=== PATIENT | female | born 1980 | race Caucasian/White ===

== ENCOUNTER 2018-11-05 06:48 | Emergency (ER) | payer SELFPAY ==
[2018-11-05 06:51] VITALS: BP 126/83; PULSE 94; RESP 16; TEMP 36.8; O2SAT 100; BMI 25.0
--- NOTE | 2018-11-05 07:10 | ED.VISSUMM ---
- ER Visit Summary Date of Service: 11/05/18 Chief Complaint: [Rash] History of Present Illness: The patient is a 37 F [presents the emergency department complaint of a rash that she has had for 2 days. Patient states initially the rash, started on her feet and ankles and spread up to her legs and trunk as well as her arms. Patient describes it as very pruritic. Patient states that she started taking an immune vitamin called immune C before the rash started but then she discontinued it. Patient also states that she used a new detergent to wash her laundry with but she also states that she discontinued that and we washed all her clothing and her old detergent. Patient denies any recent illness. She denies any fevers. She denies being on any new medications or antibiotics otherwise. She denies any difficulty swallowing or breathing at this time.] Physical Examination: HEENT-PERRLA, EOMI. Cranial nerves II through XII grossly intact. TMs clear. Mucous membranes moist. No adenopathy. Cardiovascular-regular rate and rhythm without murmur or ectopy Lungs-clear to auscultation, chest wall stable without crepitus or subcu emphysema Abdomen-normoactive bowel sounds, soft, nontender, no rebound or rigidity, no peritoneal signs. Skin exam-patient has a fine erythematous macular rash that involving the extremities as well as the trunk. The rash is pruritic. Patient does have some mild edema both ankles noted. No petechiae noted. No vesicles noted. Extremities-intact ?4, normal range of motion, normal pulses, atraumatic] Test Results: [None indicated] Emergency Department Course and Treatment: [Patient will be started on prednisone and was given 60 mg p.o. in the department.] Treatment Plan: [We will treat with prednisone and Atarax. Patient will be given referral to lacquer maker for follow-up.] Disposition: [Discharged home in stable condition] Impression: [Dermatitis-etiology uncertain] This note was generated with [employer] dictation software. It may contain incorrect words, spelling, and punctuation that were not noted in review of the chart prior to signing ED Disposition - Plan for ED Patient: Chief Complaint: Rash Referrals: Care Physician,No Primary [Primary Care Provider] -
--- NOTE | 2018-11-05 07:13 | ED.DCSUM_ITS ---
- ER Visit Summary Date of Service: 11/05/18 Chief Complaint: [Rash] History of Present Illness: The patient is a 37 F [presents the emergency department complaint of a rash that she has had for 2 days. Patient states initially the rash, started on her feet and ankles and spread up to her legs and trunk as well as her arms. Patient describes it as very pruritic. Patient states that she started taking an immune vitamin called immune C before the rash started but then she discontinued it. Patient also states that she used a new detergent to wash her laundry with but she also states that she discontinued that and we washed all her clothing and her old detergent. Patient denies any recent illness. She denies any fevers. She denies being on any new medications or antibiotics otherwise. She denies any difficulty swallowing or breathing at this time.] Physical Examination: HEENT-PERRLA, EOMI. Cranial nerves II through XII grossly intact. TMs clear. Mucous membranes moist. No adenopathy. Cardiovascular-regular rate and rhythm without murmur or ectopy Lungs-clear to auscultation, chest wall stable without crepitus or subcu emphysema Abdomen-normoactive bowel sounds, soft, nontender, no rebound or rigidity, no peritoneal signs. Skin exam-patient has a fine erythematous macular rash that involving the extremities as well as the trunk. The rash is pruritic. Patient does have some mild edema both ankles noted. No petechiae noted. No vesicles noted. Extremities-intact ?4, normal range of motion, normal pulses, atraumatic] Test Results: [None indicated] Emergency Department Course and Treatment: [Patient will be started on prednisone and was given 60 mg p.o. in the department.] Treatment Plan: [We will treat with prednisone and Atarax. Patient will be given referral to certified juvenile probation officer for follow-up.] Disposition: [Discharged home in stable condition] Impression: [Dermatitis-etiology uncertain] This note was generated with [employer] dictation software. It may contain incorrect words, spelling, and punctuation that were not noted in review of the chart prior to signing ED Disposition - Plan for ED Patient: Chief Complaint: Rash Referrals: Care Physician,No Primary [Primary Care Provider] -
--- NOTE | 2018-11-05 07:13 | ED.DEP ---
ED Disposition - Plan for ED Patient: Chief Complaint: Rash Instructions: ED Dermatitis Non Specific Rash Prescriptions: hydrOXYzine tablet [Atarax tablet] 10 mg PO 4X/DAY PRN PRN #30 tab PRN Reason: Itching predniSONE tablet 20 mg PO BID #14 tab Referrals: Care Physician,No Primary [Primary Care Provider] - Jesse Forrester MD [STAFF PHYSICIAN] - 5-7 Days
[2018-11-05] MEDS: predniSONE 20 MG Tablet 60 MG PO (07:16)
--- OUTSIDE RECORDS SUMMARY | 2018-12-22 02:25 | XMS RPT_ITS ---
:1980 Author Organization OHIP Support Name Relationship Address Phone SAM LOVELY Unavailable [address] + [place] [address] SAM LOVELY Unavailable [address] + [place] [address] SAM LOVELY Unavailable [address] + [place] [address] FRANTZ MELENDEZ JR Unavailable [address] + [place] [address] SAM LOVELY Unavailable [address] + [place] [address] SAM LOVELY Unavailable [address] + [place] [address] SAM, LOVELY Unavailable [address] + [place] [address] FRANTZ MELENDEZ JR Unavailable [address] + [place] [address] NICK VARGASDY Unavailable Unavailable + UE Unavailable Unavailable Unavailable NICK VARGASDY Unavailable Unavailable + UE Unavailable Unavailable Unavailable NICK VARGASDY Unavailable [address] + [place] [address] UE Unavailable Unavailable Unavailable SAM, LOVELY Unavailable [address] + [place] [address] SAM LOVELY Unavailable [address] + [place] [address] SAM LOVELY Unavailable [address] + [place] [address] FRANTZ MELENDEZ JR Unavailable [address] + [place] [address] SAM, LOVELY Unavailable [address] + [place] [address] SAM, LOVELY Unavailable [address] + [place] [address] SAM, LOVELY Unavailable [address] + [place] [address] FRANTZ MELENDEZ JR Unavailable [address] + [place] [address] ASM, LOVELY Unavailable [address] + [place] [address] SAM, LOVELY Unavailable [address] + [place] [address] SAM, LOVELY Unavailable [address] + [place] [address] FRANTZ MELENDEZ JR Unavailable [address] + [place] [address] SAM, LOVELY Unavailable [address] + [place] [address] [address] [facility] [address] [address] Care Team Providers Name Role Phone KATHERINE SEN, DR. MORALES Attending Unavailable PHYSICIAN, NONE Primary Care Unavailable Karen Piedra MD Attending Unavailable PHYSICIAN, NONE Primary Care Unavailable KAYLEN RAMOS MD Attending Unavailable PHYSICIAN, NONE Primary Care Unavailable MELA HOPKINS Attending Unavailable PHYSICIAN, NONE Primary Care Unavailable PHYSICIAN, NONE Primary Care Unavailable GUIDO SEN MD. RUY Dixon Consulting Unavailable GUIDO SEN MD. RUY Dixon Admitting Unavailable GUIDO SEN MD. RUY Dixon Attending Unavailable KEITH HOROWITZ (HYUN) Attending Unavailable Primay Care Physicia, No Primary Care Unavailable Arley Hernández Attending Unavailable Primay Care Physicia, No Primary Care Unavailable Max Skinner Attending Unavailable Primay Care Physicia, No Primary Care Unavailable Naeem Arzola Attending Unavailable Primay Care Physicia, No Primary Care Unavailable Andrew Melendez Attending Unavailable PROBLEMS PROBLEMS DATE TYPE CONDITION / CODE ATTENDING STATUS SOURCE 12/19/2017 Unknown M54.9 - Naeem Arzola Active [facility], Community unspecified / Hospital M54.9(ICD-10) Repository PROCEDURES PROCEDURES No Procedure Records FoundRESULTS RESULTS US RENAL Observed: 12/01/2018 Status: F Source: [facility] 7:14 AM [facility] [place] REPOSITORY ORIGINAL US RENAL CLINICAL STATEMENT: Elevated Creatinine COMPARISON: None FINDINGS:Today's examination demonstrates a RIGHT renal length of 10.8 cm and LEFT renal length of 11.0 cm. There is slight prominence of the collecting system centrally in both kidneys. On the LEFT, fi ndings suggesting an extrarenal pelvis on CT images from 04/11/2015 is noted. This may account for the slight collecting prominence. There is limited visualization of the renal cortices particularly in the inferior pole bilaterally due to body habitus and bowel gas. No obvious intrarenal collecting system filling defects to suggest renal calculus disease is noted. The bladder is moderately distended. IMPRESSION:Minimal central collecting system prominence which may in part be related to the partially collapsed extrarenal pelvis on the LEFT. There is no luis carlos collecting system dilatation or perinephric abnormality. Interpreted By: Tashia Guillermo MD Preliminary Report By: Tashia Guillermo MD Electronically Signed By: Tashia Guillermo MD Dictated Date: 12/01/2018 8:34:01 AM Prelim Date: 12/01/2018 8:34:01 AM Sign Date: 12/01/2018 8:42:38 AM BMP Collected: 12/01/2018 Status: F Source: [facility] 5:20 AM [facility] [place] REPOSITORY TYPE CODE TESTS RESULT OUT OF REFERENCE UNITS RANGE LAB GLU(LOINC) 70-105 mg/dL Glucose High Level 157 LAB NA(LOINC) 136-145 mmol/L Sodium Level 139 LAB K(LOINC) 3.5-5.1 mmol/L Potassium Level 3.8 LAB CL(LOINC) 98-107 mmol/L Chloride 102 LAB CO2(LOINC) 22-29 mmol/L CO2 High 31 LAB EBAL(LOINC mEq/L ) Electrolyte Balance 6.0 LAB BUN(LOINC) 7-18 mg/dL BUN 9 LAB CRE(LOINC) 0.55-1.02 mg/dL Creatinine Lvl (s) 0.72 LAB BC(LOINC) 7-27 ratio BUN/Creatinine 12 Ratio LAB CA(LOINC) 8.4-10.2 mg/dL Calcium Lvl 8.8 Performed By: #### BMP, TSH, GFR #### [address] [address] TSH Collected: 12/01/2018 Status: F Source: [facility] 5:20 AM [facility] [place] REPOSITORY TYPE CODE TESTS RESULT OUT OF RANGE REFERENCE UNITS LAB TSH(LOINC) 0.36-3.74 mcIU/mL TSH 0.41 Performed By: #### BMP, TSH, GFR #### [address] [address] .GFR Collected: 12/01/2018 Status: F Source: [facility] 5:20 AM [facility] [place] REPOSITORY TYPE CODE TESTS RESULT OUT OF REFERENCE UNITS RANGE LAB GFRAA(LOINC ml/min/1.73 ) sqm GFR 110 Vietnamese Result Comment: GFR Population mean for , Non- Americans Ages 20-29 = 116 mL/min/1.73 sq.m. Ages 30-39 = 107 mL/min/1.73 sq.m. Ages 40-49 = 99 mL/min/1.73 sq.m. Ages 50-59 = 93 mL/min/1.73 sq.m. Ages 60-69 = 85 mL/min/1.73 sq.m. Ages 70+ = 75 mL/min/1.73 sq.m. Chronic Kidney Disease: Less than 60 mL/min/1.73 square meters End Stage Renal Disease: Less than 15 mL/min/1.73 square meters LAB GFRNO(LOINC) ml/min/1.73sqm GFR Non- 91 Result Comment: GFR Population mean for , Non- Americans Ages 20-29 = 116 mL/min/1.73 sq.m. Ages 30-39 = 107 mL/min/1.73 sq.m. Ages 40-49 = 99 mL/min/1.73 sq.m. Ages 50-59 = 93 mL/min/1.73 sq.m. Ages 60-69 = 85 mL/min/1.73 sq.m. Ages 70+ = 75 mL/min/1.73 sq.m. Chronic Kidney Disease: Less than 60 mL/min/1.73 square meters End Stage Renal Disease: Less than 15 mL/min/1.73 square meters Performed By: #### BMP, TSH, GFR #### [place] [address] JESS Collected: 11/30/2018 Status: F Source: [facility] 5:22 PM [facility] [place] REPOSITORY TYPE CODE TESTS RESULT OUT OF RANGE REFERENCE UNITS LAB JESS(LOINC) Neg 40 JESS Neg 40 Performed By: #### ESR, JESS #### [place] [address] SPE Collected: 11/30/2018 Status: F Source: [facility] 5:22 PM [facility] [place] REPOSITORY TYPE CODE TESTS RESULT OUT OF REFERENCE UNITS RANGE LAB PROT(LOIN 6.0-8.5 G/dL C) Total Protein 5.3 Low LAB PEALB(FARAZ 3.3-5.0 G/dL NC) Albumin 2.8 Low LAB PEA1(LOIN 0.1-0.4 G/dL C) Alpha 1 0.2 LAB PEA2(LOIN 0.6-1.2 G/dL C) Alpha 2 0.8 LAB PEB(LOINC 0.6-1.3 G/dL ) Beta 0.7 LAB PEGLB(FARAZ 0.7-1.6 G/dL NC) Gamma 0.8 LAB PECOM(FARAZ NC) SPE The total Interpretation protein and/or albumin is/are decreased. This may occur in liver disease, malnutrition, malabsorption syndromes, selective renal loss and following removal of large effusions, hemodialysis or apheresis. Result Comment: Electronically Signed by: REGI JACK MD 12/02/2018 13:59 EST Performed By: #### SPE #### [place] [address] 24UTP Collected: 11/30/2018 Status: F Source: [facility] 5:05 PM [facility] [place] REPOSITORY TYPE CODE TESTS RESULT OUT OF REFERENCE UNITS RANGE LAB VOL24(LOINC mL/24hr ) U24 Total 3000 Volume Result Comment: Specimen collection time 17 Hr. Due to patient discharged before 24Hr. LAB PRUR(LOINC) 0-11 mg/dL Ur Protein <6 LAB PR24(LOINC) <=149 mg/24hr High U24 Protein <180 Performed By: #### 24UTP #### [place] [id number] UA Collected: 11/30/2018 Status: F Source: [facility] 4:14 PM [facility] [place] REPOSITORY TYPE CODE TESTS RESULT OUT OF REFERENCE UNITS RANGE LAB SPCUA(LOIN C) UA Specimen Type Clean Catch LAB CLRUA(LOIN C) UA Color Yellow LAB APPUA(LOIN Clear C) UA Appear Clear LAB SGUA(LOINC ) UA Spec Grav 1.015 LAB GLUA(LOINC Negative mg/dL ) UA Glucose Negative LAB BILUA(LOIN Negative C) UA Bili Negative LAB KETUA(LOIN Negative mg/dL C) UA Ketones Negative LAB BLDUA(LOIN Negative C) UA Blood Negative LAB PHUA(LOINC ) UA pH 6.5 LAB PROUA(LOIN Negative mg/dL C) UA Protein Negative LAB UROUA(LOIN E.U./dL C) UA Urobilinogen 0.2 LAB NITUA(LOIN Negative C) UA Nitrite Negative LAB LEUUA(LOIN Negative C) UA Leuk Est Negative Performed By: #### UA #### [address] [address] CBC Collected: 11/30/2018 Status: F Source: [facility] 4:14 [facility] REPOSITORY TYPE CODE TESTS RESULT OUT OF REFERENCE UNITS RANGE LAB WBC(LOINC) 4.60-10.80 10 3/mcL WBC 7.40 LAB RBCCT(LOINC 4.20-5.40 10 6/mcL ) RBC 5.09 LAB HGB(LOINC) 12.0-16.0 G/dL Hgb 14.7 LAB HCT(LOINC) 37.0-47.0 % Hct 43.6 LAB MCV(LOINC) 80.0-94.0 fL MCV 85.5 LAB MCH(LOINC) 27.0-31.2 pg MCH 28.9 LAB MCHC(LOINC) 33.0-37.0 G/dL MCHC 33.8 LAB RDW(LOINC) 11.5-14.5 % RDW 14.1 LAB PLT(LOINC) 130-400 10 3/mcL Platelet 219 LAB MPV(LOINC) 7.4-10.4 fL Low MPV 7.0 Performed By: #### CBC, KAYLIE, [facility] #### [place] [id number] #### CMP, GFR #### [place] [address] .AUTO DIFF Collected: 11/30/2018 Status: F Source: [facility] 4:14 PM [facility] [place] REPOSITORY TYPE CODE TESTS RESULT OUT OF REFERENCE UNITS RANGE LAB AMAYA(LOINC) 37.0-80.0 % Neutrophil % 60.0 LAB LYM(LOINC) 10.0-50.0 % Lymphocyte % 26.2 LAB MON(LOINC) 1.7-13.0 % Monocyte % 6.6 LAB EO(LOINC) 0.0-7.0 % Eosinophil % 6.1 LAB BAS(LOINC) 0.0-2.5 % Basophil % 1.1 LAB ABLYM(LOIN 0.77-3.85 10 3/mcL C) Lymphocyte, 1.90 Absolute LAB NENA(LOINC 0.15-1.00 10 3/mcL ) Monocyte, 0.50 Absolute LAB AEOS(LOINC 0.00-0.40 10 3/mcL ) Eosinophil, 0.40 Absolute LAB ABAS(LOINC 0.00-0.19 10 3/mcL ) Basophil, 0.10 Absolute Performed By: #### CBC, ADIFF, ANEU #### [place] [address] #### CMP, GFR #### [place] [address] .NEUABS Collected: 11/30/2018 Status: F Source: [facility] 4:14 PM [facility] [place] REPOSITORY TYPE CODE TESTS RESULT OUT OF REFERENCE UNITS RANGE LAB ANEU(LOINC) 2.85-6.16 10 3/mcL Neutrophil, 4.40 Absolute Performed By: #### CBC, ADIFF, ANEU #### [place] [address] #### CMP, GFR #### [place] [address] CMP Collected: 11/30/2018 Status: F Source: [facility] 4:14 [facility] REPOSITORY TYPE CODE TESTS RESULT OUT OF REFERENCE UNITS RANGE LAB GLU(LOINC) 70-105 mg/dL Glucose High Level 119 LAB NA(LOINC) 136-145 mmol/L Sodium Level 137 LAB K(LOINC) 3.5-5.1 mmol/L Potassium Level 3.6 LAB CL(LOINC) 98-107 mmol/L Chloride 101 LAB CO2(LOINC) 22-29 mmol/L CO2 High 30 LAB EBAL(LOINC mEq/L ) Electrolyte Balance 6.0 LAB BUN(LOINC) 7-18 mg/dL BUN 8 LAB CRE(LOINC) 0.55-1.02 mg/dL Creatinine Lvl (s) 0.65 LAB BC(LOINC) 7-27 ratio BUN/Creatinine 12 Ratio LAB CA(LOINC) 8.4-10.2 mg/dL Low Calcium Lvl 8.3 LAB PROT(LOINC 6.4-8.2 G/dL ) Low Total Protein 5.7 LAB ALB(LOINC) 3.5-5.0 G/dL Low Albumin Level 2.7 LAB GLB(LOINC) G/dL Globulin 3.0 LAB AG(LOINC) 1.1-2.5 ratio Low A/G Ratio 0.9 LAB BILT(LOINC 0.2-1.0 mg/dL ) Bili Total 0.4 LAB AP(LOINC) 40-135 U/L Alk Phos 90 LAB AST(LOINC) 10-40 U/L AST/SGOT High 66 LAB ALT(LOINC) 10-35 U/L ALT/SGPT High 150 Performed By: #### CBC, ADIFF, ANEU #### [address] [address] #### CMP, GFR #### [address] [address] .GFR Collected: 11/30/2018 Status: F Source: [facility] 4:14 [facility] TYPE CODE TESTS RESULT OUT OF REFERENCE UNITS RANGE LAB GFRAA(LOINC ml/min/1.73 ) sqm GFR 124 Vietnamese Result Comment: GFR Population mean for , Non- Americans Ages 20-29 = 116 mL/min/1.73 sq.m. Ages 30-39 = 107 mL/min/1.73 sq.m. Ages 40-49 = 99 mL/min/1.73 sq.m. Ages 50-59 = 93 mL/min/1.73 sq.m. Ages 60-69 = 85 mL/min/1.73 sq.m. Ages 70+ = 75 mL/min/1.73 sq.m. Chronic Kidney Disease: Less than 60 mL/min/1.73 square meters End Stage Renal Disease: Less than 15 mL/min/1.73 square meters LAB GFRNO(LOINC) ml/min/1.73sqm GFR Non- 103 Result Comment: GFR Population mean for , Non- Americans Ages 20-29 = 116 mL/min/1.73 sq.m. Ages 30-39 = 107 mL/min/1.73 sq.m. Ages 40-49 = 99 mL/min/1.73 sq.m. Ages 50-59 = 93 mL/min/1.73 sq.m. Ages 60-69 = 85 mL/min/1.73 sq.m. Ages 70+ = 75 mL/min/1.73 sq.m. Chronic Kidney Disease: Less than 60 mL/min/1.73 square meters End Stage Renal Disease: Less than 15 mL/min/1.73 square meters Performed By: #### CBCKAYLIE, ANEU #### [place] [address] [address] #### CMP, GFR #### [place] [address] CRSETH Collected: 11/30/2018 Status: F Source: [facility] 4:14 [facility] REPOSITORY TYPE CODE TESTS RESULT OUT OF REFERENCE UNITS RANGE LAB CRU(LOINC) 28.0-117.0 mg/dL U Creatinine 67.9 Performed By: #### EUGENE NASETH #### [place] [address] NAUR Collected: 11/30/2018 Status: F Source: [facility] 4:14 [facility] REPOSITORY TYPE CODE TESTS RESULT OUT OF REFERENCE UNITS RANGE LAB NAEEM(LOINC) 20-110 mmol/L High U Sodium 121 Performed By: #### EUGENE, NAUR #### [address] [address] ESR Collected: 11/30/2018 Status: F Source: [facility] 4:14 PM [facility] [place] REPOSITORY TYPE CODE TESTS RESULT OUT OF REFERENCE UNITS RANGE LAB ESR(LOINC) 0-20 mm/hr Erythrocyte Sed Rate 5 Performed By: #### ESR, JESS #### [place] [address] EOS Collected: 11/30/2018 Status: F Source: [facility] 4:14 PM [facility] [place] REPOSITORY TYPE CODE TESTS RESULT OUT OF REFERENCE UNITS RANGE LAB EOSRC(LOIN C) Eosinophil Spec Urine Type LAB EOSMR(LOIN C) Eos Smear 0 Result Comment: The units for an eosinophil smear depend upon specimen type: Stool, sputum, nasal specimens: number of cells/hp field Urine, bronchial lavage: number of cells/100 cells (%) Performed By: #### EOS #### [place] [address] UA Collected: 11/22/2018 Status: F Source: [facility] 8:32 PM [facility] [place] REPOSITORY TYPE CODE TESTS RESULT OUT OF RANGE REFERENCE UNITS LAB SPCUA(FARAZ NC) UA Specimen Type Clean Catch LAB CLRUA(FARAZ NC) UA Color Yellow LAB APPUA(FARAZ Clear NC) UA Appear Clear LAB SGUA(LOIN C) UA Spec Unknown Grav 1.010 LAB GLUA(LOIN Negative mg/dL C) UA Glucose Negative LAB BILUA(FARAZ Negative NC) UA Bili Negative LAB KETUA(FARAZ Negative mg/dL NC) UA Ketones Negative LAB BLDUA(FARAZ Negative NC) UA Blood Negative LAB PHUA(LOIN C) UA pH 6.0 LAB PROUA(FARAZ Negative mg/dL NC) UA Protein Negative LAB UROUA(FARAZ E.U./dL NC) UA Urobilinogen 0.2 LAB NITUA(FARAZ Negative NC) UA Nitrite Negative LAB LEUUA(FARAZ Negative NC) UA Leuk Est Negative Performed By: #### UA #### [place] [address] Observed: 11/22/2018 Status: F Source: [facility] 8:32 PM [facility] [place] REPOSITORY . MICRO - Microbiology PROCEDURE: Beta Strep Antigen with Cult if Ind [*1] SOURCE: Throat BODY SITE: COLLECTED DATE/TIME: 11/22/2018 20:32 EST RECEIVED DATE/TIME: 11/22/2018 20:42 EST START DATE/TIME: 11/22/2018 20:42 EST FREE TEXT SOURCE: FINAL REPORTS Final Report [] Verified Date/Time/Personnel: 11/22/2018 20:54 EST Antigen Screen: Negative for Group A Strep. Culture confirmation to follow. COMMENT: Recommendations suggest that all negative results be confirmed with culture. Performing Locations *1: This test was performed at: [address], [id number] [place] [address] Performed By: #### BSA #### [address] [address] CBC Collected: 11/22/2018 Status: F Source: [facility] 8:32 [facility] REPOSITORY TYPE CODE TESTS RESULT OUT OF REFERENCE UNITS RANGE LAB WBC(LOINC) 4.60-10.80 10 3/mcL WBC 10.00 LAB RBCCT(LOINC 4.20-5.40 10 6/mcL ) RBC 4.52 LAB HGB(LOINC) 12.0-16.0 G/dL Hgb 13.2 LAB HCT(LOINC) 37.0-47.0 % Hct 38.2 LAB MCV(LOINC) 80.0-94.0 fL MCV 84.6 LAB MCH(LOINC) 27.0-31.2 pg MCH 29.3 LAB MCHC(LOINC) 33.0-37.0 G/dL MCHC 34.6 LAB RDW(LOINC) 11.5-14.5 % RDW 13.6 LAB PLT(LOINC) 130-400 10 3/mcL Platelet 243 LAB MPV(LOINC) 7.4-10.4 fL MPV 7.5 Performed By: #### CBC, ADIFF, ANEU #### [address] [address] #### CMP, GFR, ESR #### [address] [address] .AUTO DIFF Collected: 11/22/2018 Status: F Source: [facility] 8:32 PM [facility] [place] REPOSITORY TYPE CODE TESTS RESULT OUT OF REFERENCE UNITS RANGE LAB AMAYA(LOINC) 37.0-80.0 % Neutrophil % 66.8 LAB LYM(LOINC) 10.0-50.0 % Lymphocyte % 23.0 LAB MON(LOINC) 1.7-13.0 % Monocyte % 6.1 LAB EO(LOINC) 0.0-7.0 % Eosinophil % 3.4 LAB BAS(LOINC) 0.0-2.5 % Basophil % 0.7 LAB ABLYM(LOIN 0.77-3.85 10 3/mcL C) Lymphocyte, 2.30 Absolute LAB NENA(LOINC 0.15-1.00 10 3/mcL ) Monocyte, 0.60 Absolute LAB AEOS(LOINC 0.00-0.40 10 3/mcL ) Eosinophil, 0.30 Absolute LAB ABAS(LOINC 0.00-0.19 10 3/mcL ) Basophil, 0.10 Absolute Performed By: #### CBC, ADIFF, ANEU #### [facility] [address] [place], [place] [address] #### CMP, GFR, ESR #### [address] [address] .NEUABS Collected: 11/22/2018 Status: F Source: [facility] 8:32 [facility] REPOSITORY TYPE CODE TESTS RESULT OUT OF REFERENCE UNITS RANGE LAB ANEU(LOINC) 2.85-6.16 10 3/mcL High Neutrophil, 6.70 Absolute Performed By: #### CBC, ADIFF, ANEU #### [place] [address] [place], [place] [address] #### CMP, GFR, ESR #### [address] [address] CMP Collected: 11/22/2018 Status: F Source: [facility] 8:32 [facility] REPOSITORY TYPE CODE TESTS RESULT OUT OF REFERENCE UNITS RANGE LAB GLU(LOINC) 70-105 mg/dL Glucose High Level 131 LAB NA(LOINC) 136-145 mmol/L Sodium Level 139 LAB K(LOINC) 3.5-5.1 mmol/L Low Potassium Level 3.2 LAB CL(LOINC) 98-107 mmol/L Chloride 102 LAB CO2(LOINC) 22-29 mmol/L CO2 29 LAB EBAL(LOINC mEq/L ) Electrolyte Balance 8.0 LAB BUN(LOINC) 7-18 mg/dL BUN 10 LAB CRE(LOINC) 0.55-1.02 mg/dL Creatinine Lvl (s) 0.64 LAB BC(LOINC) 7-27 ratio BUN/Creatinine 16 Ratio LAB CA(LOINC) 8.4-10.2 mg/dL Low Calcium Lvl 8.0 LAB PROT(LOINC 6.4-8.2 G/dL ) Low Total Protein 5.5 LAB ALB(LOINC) 3.5-5.0 G/dL Low Albumin Level 2.8 LAB GLB(LOINC) G/dL Globulin 2.7 LAB AG(LOINC) 1.1-2.5 ratio Low A/G Ratio 1.0 LAB BILT(LOINC 0.2-1.0 mg/dL ) Bili Total 0.6 LAB AP(LOINC) 40-135 U/L Alk Phos 71 LAB AST(LOINC) 10-40 U/L AST/SGOT 31 LAB ALT(LOINC) 10-35 U/L ALT/SGPT High 79 Performed By: #### CBC, ADIFF, ANEU #### [address] [address] #### CMP, GFR, ESR #### [address] [address] .GFR Collected: 11/22/2018 Status: F Source: [facility] 8:32 PM [facility] REPOSITORY TYPE CODE TESTS RESULT OUT OF REFERENCE UNITS RANGE LAB GFRAA(LOINC ml/min/1.73 ) sqm GFR 127 Vietnamese Result Comment: GFR Population mean for , Non- Americans Ages 20-29 = 116 mL/min/1.73 sq.m. Ages 30-39 = 107 mL/min/1.73 sq.m. Ages 40-49 = 99 mL/min/1.73 sq.m. Ages 50-59 = 93 mL/min/1.73 sq.m. Ages 60-69 = 85 mL/min/1.73 sq.m. Ages 70+ = 75 mL/min/1.73 sq.m. Chronic Kidney Disease: Less than 60 mL/min/1.73 square meters End Stage Renal Disease: Less than 15 mL/min/1.73 square meters LAB GFRNO(LOINC) ml/min/1.73sqm GFR Non- 104 Result Comment: GFR Population mean for , Non- Americans Ages 20-29 = 116 mL/min/1.73 sq.m. Ages 30-39 = 107 mL/min/1.73 sq.m. Ages 40-49 = 99 mL/min/1.73 sq.m. Ages 50-59 = 93 mL/min/1.73 sq.m. Ages 60-69 = 85 mL/min/1.73 sq.m. Ages 70+ = 75 mL/min/1.73 sq.m. Chronic Kidney Disease: Less than 60 mL/min/1.73 square meters End Stage Renal Disease: Less than 15 mL/min/1.73 square meters Performed By: #### CBC, ADIFF, ANEU #### [place] [address] [place], [place] [address] #### CMP, GFR, ESR #### [place] [address] ESR Collected: 11/22/2018 Status: F Source: [facility] 8:32 PM [facility] [place] REPOSITORY TYPE CODE TESTS RESULT OUT OF REFERENCE UNITS RANGE LAB ESR(LOINC) 0-20 mm/hr Erythrocyte Sed Rate 13 Performed By: #### CBC, ADIFF, ANEU #### [address] [address] #### CMP, GFR, ESR #### [place] [address] Observed: 11/22/2018 Status: F Source: [facility] 8:32 PM [facility] [place] REPOSITORY . MICRO - Microbiology PROCEDURE: Rapid Influenza A+B Screen w Cult if Ind [*1] SOURCE: Nasopharyngeal BODY SITE: COLLECTED DATE/TIME: 11/22/2018 20:32 EST RECEIVED DATE/TIME: 11/22/2018 20:42 EST START DATE/TIME: 11/22/2018 20:42 EST FREE TEXT SOURCE: FINAL REPORTS Final Report [] Verified Date/Time/Personnel: 11/22/2018 21:07 EST Specimen is negative for the presence of influenza A antigen. . Specimen is negative for the presence of influenza B antigen. . Inadequate specimen collection, improper sample handling and/or low levels of viral shedding may yield a false-negative result. . The optimal specimen type for the Rapid Flu test is a nasopharyngeal wash/aspirate or nasopharyngeal swab. All negative rapid tests for Flu A and Flu B will be confirmed with a Respiratory Id Panel by PCR. . Assay method employs immunofluorescence technology. Performing Locations *1: This test was performed at: [address], [id number] Performed By: #### RFLU #### [address] [address] Observed: 11/22/2018 Status: F Source: [facility] 8:32 PM [facility] [place] REPOSITORY . MICRO - Microbiology PROCEDURE: Urine Culture [*1] SOURCE: Urine, Clean Catch BODY SITE: COLLECTED DATE/TIME: 11/22/2018 20:32 EST RECEIVED DATE/TIME: 11/23/2018 17:25 EST START DATE/TIME: 11/23/2018 17:25 EST FREE TEXT SOURCE: FINAL REPORTS Final Report [] Verified Date/Time/Personnel: 11/25/2018 07:55 EST 10,000 organisms per mL Mixed without predominant isolate(s). Sensitivity Testing not indicated. Probably contamination. Repeat culture suggested. PRELIMINARY REPORTS Preliminary Report [] Verified Date/Time/Personnel: 11/24/2018 08:14 EST No growth to date Performing Locations *1: This test was performed at: [facility], [address] [place] [address], [id number] Performed By: #### CUR #### [address] [address] RESPID Collected: 11/22/2018 Status: F Source: [facility] 8:14 PM [facility] [place] REPOSITORY Order Comment: Order added by [id number] TYPE CODE TESTS RESULT OUT OF REFERENCE UNITS RANGE LAB RESADENO( Not Detected LOINC) Adenovirus Not Detected LAB COVHKU1(L Not Detected OINC) Coronavirus HKU1 Not Detected LAB COVNL63(L Not Detected OINC) Coronavirus NL63 Not Detected LAB [id number](L Not Detected OINC) Coronavirus 229E Not Detected LAB COVOC43(L Not Detected OINC) Coronavirus OC43 Not Detected LAB HMV(LOINC Not Detected ) Human Metapneumovirus Not Detected LAB INFA(LOIN Not Detected C) Influenza A Not Detected LAB INFAB(FARAZ Not Detected NC) Influenza B Not Detected LAB PARAFLU1( Not Detected LOINC) Parainfluenza 1 Not Detected LAB PARAFLU2( Not Detected LOINC) Parainfluenza 2 Not Detected LAB PARAFLU3( Not Detected LOINC) Parainfluenza 3 Not Detected LAB PARAFLU4( Not Detected LOINC) Parainfluenza 4 Not Detected LAB RHINO(FARAZ Not Detected NC) Rhinovirus/Enterovir us Not Detected LAB RESRSV(LO Not Detected INC) Respiratory Syncytial Virus Not Detected LAB RESMYCO(L Not Detected OINC) Mycoplasma pneumoniae Not Detected LAB RESCHLAM( Not Detected LOINC) Chlamydophila pneumoniae Not Detected LAB RESBORD(L Not Detected OINC) Bordetella Pertussis Not Detected LAB RESBPAR(L Not Detected OINC) Bordetella Parapertussis Not Detected Performed By: #### RESPID #### [place] [id number] Observed: 11/22/2018 Status: F Source: [facility] 8:14 PM [facility] [place] REPOSITORY . MICRO - Microbiology PROCEDURE: Culture Beta Strep Only [O1 *1] SOURCE: Throat BODY SITE: COLLECTED DATE/TIME: 11/22/2018 20:14 EST RECEIVED DATE/TIME: 11/22/2018 20:54 EST START DATE/TIME: 11/22/2018 20:54 EST FREE TEXT SOURCE: FINAL REPORTS Final Report [] Verified Date/Time/Personnel: 11/25/2018 11:21 EST Rare Beta Hemolytic Streptococci, Group C Sensitivity testing not indicated. PRELIMINARY REPORTS Preliminary Report [] Verified Date/Time/Personnel: 11/24/2018 13:25 EST Culture results pending. Order Comments O1: Culture Beta Strep Only Order added by [email or web address] Performing Locations *1: This test was performed at: [facility], [address] [place] [address], [facility]- , [facility] Performed By: #### BSO #### [place] [address] DISCHARGE INSTRUCTION Observed: 11/18/2018 Status: F Source: [place] 8:25 PM [facility] [place] Medical Records Department [address] [place] [id number] Discharge Instruction 11/18/18 1707 MR#: [id number] Acct: [id number] Name: JOSELYN MELENDEZ Rep #: [id number] : 1980 37 From: Andrew Melendez MD PCP: Care Physician, No Primary Status: DEP ER ED Disposition - Plan for ED Patient: Disposition: Home or Assisted Living Chief Complaint: Abd Pain Instructions: ED Drug Abuse General Referrals: Ellen Barragan [NON-STAFF] - As Needed Additional Instructions: Patient strongly consider following up with a drug treatment program like [facility]. What to do if you have Problems For any increased pain, shortness of breath, bleeding, nausea or vomiting, chest pain, or any unexpected problems, contact your Primary Care Provider. Call [facility] ([phone]) or report to the closest Emergency Room. Call 911 if necessary. 11/18/182024 <Electronically signed by Andrew Melendez MD> Date Andrew Melendez MD Cosigner Signature (If Indicated): Date CC: No Primary Care Physician EMERGENCY DEPARTMENT Observed: 11/18/2018 Status: F Source: [place] SUMMARY 8:25 PM [facility] [place] [facility] Medical Records Department [address] [place] [address] Emergency Department Summary 11/18/18 1549 MR#: [id number] Acct: [id number] Name: JOSELYN MELENDEZ Rep #: [id number] : 1980 37 From: Andrew Melendez MD PCP: Care Physician, No Primary Status: DEP ER - ER Visit Summary Date of Service: 11/18/18 Chief Complaint: Reported abdominal pain History of Present Illness: The patient is a 37 F history of drug abuse. Patient appears high. She is a very limited informant. I have to keep waking her up and shaking her to get her to respond to my questioning. Reportedly she has abdominal pain. From the scene where she was brought in from there with drugs. Physical Examination: Female no acute distress. Is very sleepy. Pupils equal open her eyes. Will answer limited questions. Keeps falling asleep. HEENT exam pupils are round reactive to light about 3 mm bilaterally. No facial trauma. No head trauma. Neck nontender. Lungs clear to auscultation bilaterally. Heart regular rhythm no murmur. Abdomen is soft and nontender. Nondistended. Normal bowel sounds. No hernias or masses.. No peritoneal signs. There are no signs of trauma to her abdomen. Extremities are nontender. No rashes. Back nontender. Neurologically she appears to be intoxicated. I do not smell alcohol. She is arousable. She will move all 4 extremities. Test Results: Clinically I do not find any obvious signs of abdominal pain. She should be given IV Narcan. Screening labs will be obtained. CBC shows a white count of 14.9 and hemoglobin of 18. Electrolytes unremarkable sodium 135. Normal gap of 7. Creatinine 1.1. Liver enzymes normal. Lipase normal. Serum test negative. Emergency Department Course and Treatment: IV Narcan. After the patient was treated with IV Narcan she defecated in the bed. Treatment Plan: [] Disposition: Discharge Impression: Acute intoxication secondary to drug use Reported abdominal pain uncertain etiology This note was generated with Paperlit dictation software. It may contain incorrect words, spelling, and punctuation that were not noted in review of the chart prior to signing ED Disposition - Plan for ED Patient: Chief Complaint: Abd Pain Referrals: Care Physician,No Primary [Primary Care Provider] - What to do if you have Problems For any increased pain, shortness of breath, bleeding, nausea or vomiting, chest pain, or any unexpected problems, contact your Primary Care Provider. Call [facility] ([phone]) or report to the closest Emergency Room. Call 911 if necessary. 11/18/182024 <Electronically signed by Andrew Melendez MD> Date Andrew Melendez MD Cosigner Signature (If Indicated): Date CC: No Primary Care Physician CBC W/DIFF, AUTOMATED Collected: 11/18/2018 Status: F Source: [place] 3:54 PM [facility] [place] TYPE CODE TESTS RESULT OUT OF RANGE REFERENCE UNITS LAB L100.1000 4.4-11.0 K/mm3 High WBC 14.9 LAB L100.1200 4.2-5.4 M/mm3 High RBC 6.23 LAB L100.1300 12.0-15.0 g/dl High alert HGB 18.2 Result Comment: CRITICAL VALUE VERIFIED. CALLED TO JEFF 11/18/18 9216 Emily York. RESULTS READ BACK BY JEFF . LAB L100.1400 37-47 % High HCT 54.7 LAB L100.1500 81-99 fL Normal MCV 87.8 LAB L100.1600 27.0-32.0 pg Normal MCH 29.2 LAB L100.1700 32-36 g/gl Normal MCHC 33.3 LAB L100.1810 11.6-14.6 % Normal RDW CV 14.2 LAB L100.1820 35.1-43.9 fl High RDW SD 45.4 LAB L100.1900 150-450 K/mm3 Normal PLT 277 LAB L100.2000 6.2-12.0 fl Normal MPV 9.4 LAB L100.2100 47-70 % High NEUT% 77.6 LAB L100.2200 19-41 % Low LY% 13.1 LAB L100.2300 0-10 % Normal MONO% 6.3 LAB L100.2400 0-5 % Normal EO% 2.3 LAB L100.2500 0-1 % Normal BASO% 0.1 LAB L100.2550 0.0-0.9 % Normal IM GRAN % 0.600 Result Comment: IG% - Immature Granulocytes (promyelocytes, myelocytes and metamyelocytes) > 1% indicates that a LEFT SHIFT is Present. LAB L100.2620 2.0-7.7 X10 3/uL High Absolute Neut 11.5 LAB L100.2720 0.83-4.51 X10 3/ul Normal Absolute Lymph 1.95 Performed By: #### L100.0100 #### [facility] [address] [place], [address] BASIC METABOLIC Collected: 11/18/2018 Status: F Source: [place] PROFILE (BMP) 3:54 PM [facility] [place] [facility] TYPE CODE TESTS RESULT OUT OF RANGE REFERENCE UNITS LAB L501.0100 74-106 mg/dL High GLU 117 Result Comment: Fasting Glucose result from 100 to 125 mg/dL suggests IMPAIRED HOMEOSTASIS per A.D.A. criteria. Please note revised GLUCOSE reference range effective 2017. LAB L501.1000 7-18 mg/dL High BUN 27 LAB L501.1100 0.55-1.02 mg/dL High CREAT,SERUM 1.11 Result Comment: The validity of the calculated GFR AND GFRAA in patients over 70 years has not been determined. Clinical correlation is essential. LAB L501.1110 >60 mL/min Low EST GFR 59 Result Comment: Non- GFR Calc LAB L501.1115 >60 mL/min Normal EST GFR - AA 71 Result Comment: GFR Calc LAB L501.1255 ml/min Normal Estimated CRCL 59.92 LAB L501.1300 10-20 RATIO High BUN/CRE 24.3 LAB L501.2200 8.5-10 mg/dL Normal .1 CA 8.7 LAB L501.5300 136-14 mmol/L Low 5 NA 135 LAB L501.5600 3.5-5. mmol/L Normal 1 K 4.3 Result Comment: Moderate Hemolysis, Result may be falsely increased. LAB L501.5900 98-107 mmol/L Normal CL 98 LAB L501.6100 21.0-32.0 mmol/L Normal CO2 30.0 LAB L501.6200 5-15 Normal GAP 7 Performed By: #### L500.2500, L500.3400, L501.2450 #### [facility] [address] [place], [address] LIVER PROFILE Collected: 11/18/2018 Status: F Source: [place] 3:54 PM [facility] [place] [facility] TYPE CODE TESTS RESULT OUT OF RANGE REFERENCE UNITS LAB L501.1500 6.4-8.2 g/dL Normal T PROT 7.5 LAB L501.1800 3.2-5.0 g/dL Normal ALB 3.6 LAB L501.1950 2.2-4.2 g/dL Normal GLOB 3.9 LAB L501.4100 15-37 U/L Normal AST 36 Result Comment: Moderate Hemolysis, Result may be falsely increased. LAB L501.4305 45-117 U/L Normal ALK P 87 LAB L501.4405 13-56 U/L Normal ALT 53 LAB L501.4600 0.20-1.00 mg/dL Normal T BILI 1.00 LAB L501.4700 0.00-0.30 mg/dL Normal D BILI 0.16 Performed By: #### L500.2500, L500.3400, L501.2450 #### [facility] [address] [place], [address] LIPASE Collected: 11/18/2018 Status: F Source: [place] 3:54 PM [facility] [place] [facility] TYPE CODE TESTS RESULT OUT OF RANGE REFERENCE UNITS LAB L501.2450 73-393 U/L Normal LIPASE 74 Performed By: #### L500.2500, L500.3400, L501.2450 #### [facility] [address] [place], [place], [address] ,SERUM,HCG QUALI. Collected: Status: F Source: [place] 11/18/2018 3:54 PM [facility] [place] [facility] TYPE CODE TESTS RESULT OUT OF REFERENCE UNITS RANGE LAB L700.7000 0-9 Nonpreg Negative Normal HCGSQUAL NEGATIVE LAB L700.6700 =>Qualitative mIU/mL Normal HCG Qual < 1 triggr Performed By: #### L700.6800 #### [facility] [address] [place], [address] EMERGENCY DEPARTMENT Observed: 11/14/2018 Status: F Source: [place] SUMMARY 6:20 AM [facility] [place] [facility] Medical Records Department [address] [place] [address] Emergency Department Summary 11/14/18 0326 MR#: [id number] Acct: [id number] Name: JOSELYN MELENDEZ Rep #: [id number] : 1980 37 From: Max Skinner DO PCP: Care Physician, No Primary Status: REG ER - ER Visit Summary Date of Service: 11/14/18 Chief Complaint: Joint pain History of Present Illness: The patient is a 37 F who presents with joint pain that began today. Patient states she had a similar episode approximately 2 weeks ago and was given prednisone. Patient states her joint pain improved with this but became worse again tonight. Patient describes the pain is burning sensation. Patient states it is worse over her elbows, wrists, hands, knees, ankles, and feet. Patient states her pain is worse with any movement. Patient denies any fevers or chills. Patient does admit to some urinary urgency but denies any dysuria or hematuria. Patient also admits to a mild erythematous rash around her ankles. Patient states she had a similar rash approximately 2 weeks ago that also resolved with the prednisone. Patient denies any trauma or injury. Physical Examination: Vital signs are stable except for mild tachycardia of 107. Patient is afebrile. Patient is in no acute distress. Oral mucosa is pink and moist. Neck is supple. Trachea is midline. There is no JVD noted. Heart was regular rate and rhythm. Lungs are clear and equal bilaterally. Abdomen is soft. Bowel sounds are normal. There is no tenderness. Cranial nerves II through XII are intact. There are no focal motor or sensory deficits noted. Musculoskeletal exam does reveal edema and tenderness of the bilateral wrist joints, MP joints, PIP joints, DIP joints, bilateral ankles, bilateral knees, and bilateral elbows. Range of motion was limited all motions of these joints secondary to pain. There is no deformity noted. Test Results: CBC showed a mild leukocytosis of 11.2. Comprehensive metabolic profile was within normal limits. Urine hCG was negative. PT with INR and PTT were normal. Sed rate was normal at 2. CRP was elevated at 8. Urine tox screen was positive for opiates, amphetamines, methamphetamine, cocaine, and cannabinoids. Urinalysis shows evidence of urinary tract infection. Emergency Department Course and Treatment: Patient was given IV fluids morphine and Solu-Medrol here. Patient was also given a dose of Ativan here. Patient felt better on reevaluation. Patient was given prescriptions for prednisone and Bactrim. Patient was instructed to follow-up with her primary care physician in 5-7 days. Patient and her family understood and were agreeable with the plan. All questions were answered. Disposition: Discharged home Impression: 1. Urinary tract infection 2. Arthralgias This note was generated with Paperlit dictation software. It may contain incorrect words, spelling, and punctuation that were not noted in review of the chart prior to signing ED Disposition - Plan for ED Patient: Disposition: Home or Assisted Living Chief Complaint: Weakness Diagnosis: Urinary tract infection, Arthralgia Instructions: ED Joint Pain, ED UTI Cystitis Female Prescriptions: predniSONE tablet 60 mg PO DAILY #15 tab Smz/Tmp Ds [Bactrim Ds] 1 tab PO BID #6 tab Referrals: Care Physician,No Primary [Primary Care Provider] - What to do if you have Problems For any increased pain, shortness of breath, bleeding, nausea or vomiting, chest pain, or any unexpected problems, contact your Primary Care Provider. Call [facility] ([phone]) or report to the closest Emergency Room. Call 911 if necessary. 11/14/18 06 <Electronically signed by Max Skinner DO> Date Max Skinner DO Cosigner Signature (If Indicated): Date CC: No Primary Care Physician URINE DRUG SCREEN Collected: 11/14/2018 Status: F Source: [place] (AMIETA) 5:02 AM [facility] [place] TYPE CODE TESTS RESULT OUT OF RANGE REFERENCE UNITS LAB L505.0075 TO BE Normal CONFIRMED Result Comment: CONFIRMATORY TESTING FOR ALL POSITIVE URINE DRUG SCREEN RESULTS WILL ONLY BE SENT OUT UPON PHYSICIAN ORDER. VISTA Urine Drug Screen methods provide only preliminary analytical test results. A more specific alternate chemical method must be used in order to obtain a confirmed analytical result. Gas chromatography/mass spectrometery (GC/MS) is the preferred confirmatory method. Clinical consideration and professional judgement should be applied to any drug of abuse test result, particularly when preliminary positive results are used. URINE TCA TESTING MUST BE ORDERED SEPARATELY. USE TEST MNEMONIC: [facility] LAB L505.5005 VISTA UDS PH 6 Normal LAB L505.5015 <1000 High ng/mL AMPHETAMINES POSITIVE LAB L505.5025 < 200 ng/mL BARBITIURATES Normal NEGATIVE LAB L505.5035 < 200 ng/mL BENZODIAZIPINE Normal NEGATIVE LAB L505.5045 < 300 High ng/mL COCAINE POSITIVE LAB L505.5055 < 500 High ng/mL ECSTACY POSITIVE LAB L505.5065 < 300 ng/mL METHADONE Normal NEGATIVE LAB L505.5075 < 300 High ng/mL OPIATES POSITIVE LAB L505.5085 < 25 ng/mL PCP Normal NEGATIVE LAB L505.5095 < 50 High ng/mL THC POSITIVE Performed By: #### L505.5000 #### [facility] [address] [facility]. [place], [place], [address] ,URINE Collected: 11/14/2018 Status: F Source: [place] 5:02 AM [facility] [place] TYPE CODE TESTS RESULT OUT OF REFERENCE UNITS RANGE LAB L400.8000 Negative Normal HCGUQUAL Negative Result Comment: Very dilute urine specimens, as indicated by a low specific gravity, may not contain hospital sales representative levels of hCG. If is still suspected, a first morning urine specimen should be collected 48 hours later and tested. Performed By: #### L400.7600 #### [facility] [facility]. [place], [place], [id number] Observed: 11/14/2018 Status: F Source: [place] CULTURE, BLOOD (WB) 4:02 AM [facility] [place] No growth in 5 days. Performed By: #### M200.1000 #### [facility] [place], [place], [address] Observed: 11/14/2018 Status: F Source: [place] CULTURE, BLOOD (WB) 4:00 AM [facility] [place] [facility] No growth in 5 days. Performed By: #### M200.1000 #### [facility] [address] [facility] [address] [place], [place], [id number] URINALYSIS, COMPLETE Collected: 11/14/2018 Status: F Source: [place] 3:40 AM [facility] [place] [facility] Order Comment: Order Date: 11/14/18 How was Urine Obtained? ADMINISTRATIVE MANAGER TO SPECIFY TYPE CODE TESTS RESULT OUT OF RANGE REFERENCE UNITS LAB L400.3000 Yellow COLOR Normal Yellow LAB L400.3050 Clear Normal CLARITY Cloudy LAB L400.3200 Normal mg/dl Normal GLUCOSE, UR Normal LAB L400.3300 Negative mg/dL Normal BILIRUBIN URINE Negative LAB L400.3400 Negative mg/dl High 5 KETONE UR LAB L400.3465 1.002-1.030 Normal SP.GR. DIPSTX 1.020 LAB L400.3550 5.0 - 8.0 pH UR Normal 6.0 LAB L400.3600 Negative mg/dl High PROT 15 DIPSTX LAB L400.3700 Normal mg/dl High 1 UROBILI LAB L400.3750 Negative High NITRITE UR Positive LAB L400.3780 Negative /ul Normal OCCULT BLOOD-UR Negative LAB L400.3800 Negative /ul High LEUK ESTERASE 100 LAB L400.4050 0-5 /hpf WBC Normal 5-10 SEEN LAB L400.4100 0-5 /hpf 0 Normal RBC-UA SEEN LAB L400.4150 5-10 /hpf SQUAM Normal EPI 0-5 SEEN LAB L400.4300 None Seen /hpf 3+ Normal BACTERIA LAB L400.4350 <or=2+ /hpf 0 Normal MUCUS, URINE SEEN Performed By: #### L400.0001 #### [facility] [address] [place], [address] CBC W/DIFF, AUTOMATED Collected: 11/14/2018 Status: F Source: [place] 3:12 AM [facility] [place] [facility] TYPE CODE TESTS RESULT OUT OF RANGE REFERENCE UNITS LAB L100.1000 4.4-11.0 K/mm3 High WBC 11.2 LAB L100.1200 4.2-5.4 M/mm3 Normal RBC 4.58 LAB L100.1300 12.0-15.0 g/dl Normal HGB 13.3 LAB L100.1400 37-47 % Normal HCT 40.2 LAB L100.1500 81-99 fL Normal MCV 87.8 LAB L100.1600 27.0-32.0 pg Normal MCH 29.0 LAB L100.1700 32-36 g/gl Normal MCHC 33.1 LAB L100.1810 11.6-14.6 % Normal RDW CV 13.9 LAB L100.1820 35.1-43.9 fl High RDW SD 44.4 LAB L100.1900 150-450 K/mm3 Normal PLT 265 LAB L100.2000 6.2-12.0 fl Normal MPV 9.1 LAB L100.2100 47-70 % Normal NEUT% 58.6 LAB L100.2200 19-41 % Normal LY% 27.4 LAB L100.2300 0-10 % Normal MONO% 5.8 LAB L100.2400 0-5 % High EO% 6.2 LAB L100.2500 0-1 % Normal BASO% 0.9 LAB L100.2550 0.0-0.9 % High IM GRAN % 1.100 Result Comment: IG% - Immature Granulocytes (promyelocytes, myelocytes and metamyelocytes) > 1% indicates that a LEFT SHIFT is Present. LAB L100.2620 2.0-7.7 X10 3/uL Normal Absolute Neut 6.6 LAB L100.2720 0.83-4.51 X10 3/ul Normal Absolute Lymph 3.08 Performed By: #### L100.0100 #### [facility] [address] [facility] [place], [address] PROTHROMBIN TIME W/INR Collected: 11/14/2018 Status: F Source: [place] 3:12 AM [facility] [place] [facility] TYPE CODE TESTS RESULT OUT OF RANGE REFERENCE UNITS LAB L300.4150 11.7-14.9 SECONDS Normal PROTIME 14.3 LAB L300.4200 Normal INR 1.1 Performed By: #### L300.3900, L300.4310 #### [facility] [address] [place], [address] PARTIAL THROMBOPLAST Collected: 11/14/2018 Status: F Source: [place] TIME 3:12 AM [facility] [place] [facility] TYPE CODE TESTS RESULT OUT OF RANGE REFERENCE UNITS LAB L300.4310 24.1-36.2 Seconds Normal PTT 27.0 Performed By: #### L300.3900, L300.4310 #### [facility] [address] [place], [address] COMPREHENSIVE METABOLIC Collected: 11/14/2018 Status: F Source: [place] RIVERS 3:12 AM [facility] [place] [facility] TYPE CODE TESTS RESULT OUT OF RANGE REFERENCE UNITS LAB L501.0100 74-106 mg/dL High GLU 109 Result Comment: Fasting Glucose result from 100 to 125 mg/dL suggests IMPAIRED HOMEOSTASIS per A.D.A. criteria. Please note revised GLUCOSE reference range effective 2017. LAB L501.1000 7-18 mg/dL High BUN 19 LAB L501.1100 0.55-1.02 mg/dL Normal CREAT,SERUM 0.90 Result Comment: The validity of the calculated GFR AND GFRAA in patients over 70 years has not been determined. Clinical correlation is essential. LAB L501.1110 >60 mL/min Normal EST GFR 74 Result Comment: Non- GFR Calc LAB L501.1115 >60 mL/min Normal EST GFR - AA 90 Result Comment: GFR Calc LAB L501.1255 ml/min Normal Estimated CRCL 73.90 LAB L501.1300 10-20 RATIO High BUN/CRE 21.1 LAB L501.1500 6.4-8. g/dL Low 2 T PROT 5.9 LAB L501.1800 3.2-5. g/dL Low 0 ALB 3.0 LAB L501.1950 2.2-4. g/dL Normal 2 GLOB 2.9 LAB L501.2000 0.9-2. RATIO Normal 4 A/G 1.0 LAB L501.2200 8.5-10 mg/dL Low .1 CA 8.0 LAB L501.4100 15-37 U/L Normal AST 21 LAB L501.4305 45-117 U/L Normal ALK P 74 LAB L501.4405 13-56 U/L Normal ALT 54 LAB L501.4600 0.20-1 mg/dL Normal .00 T BILI 0.40 LAB L501.5300 136-14 mmol/L Normal 5 NA 142 LAB L501.5600 3.5-5. mmol/L Normal 1 K 4.0 LAB L501.5900 98-107 mmol/L Normal CL 103 LAB L501.6100 21.0-3 mmol/L High 2.0 CO2 33.0 LAB L501.6200 5-15 Normal GAP 6 Performed By: #### L500.4050 #### [facility] [address] [place], [address] CRP Collected: 11/14/2018 Status: F Source: [place] 3:12 AM [facility] [place] [facility] TYPE CODE TESTS RESULT OUT OF RANGE REFERENCE UNITS LAB L501.6710 0.0-3.0 mg/L High 8.13 C-REACTIVE PROT Result Comment: C-Reactive Protein (CRP) provides useful information for the diagnosis, therapy and monitoring of inflammatory processes and associated diseases. For the evaluation of Relative Risk for Cardiovascular Disease, a High Sensitivity CRP (HSCRP) should be ordered. Performed By: #### L501.6710 #### [facility] [address] [place], [address] ERYTHROCYTE SED RATE Collected: 11/14/2018 Status: F Source: [place] 3:12 AM [facility] [place] [facility] TYPE CODE TESTS RESULT OUT OF RANGE REFERENCE UNITS LAB L102.0000 0-20 mm/hr Normal SED RATE 2 Performed By: #### L101.9900 #### [facility] [address] [facility] [place], [address] DISCHARGE INSTRUCTION Observed: 11/05/2018 Status: F Source: [place] 7:15 AM [facility] [place] [facility] Medical Records Department [address] [address] [place] [address] Discharge Instruction 11/05/18 0713 MR#: [id number] Acct: [id number] Name: JANNETHBAMBIGIANFRANCO Quezada Rep #: [id number] : 1980 37 From: Arley Hernández DO PCP: Care Physician, No Primary Status: REG ER ED Disposition - Plan for ED Patient: Chief Complaint: Rash Instructions: ED Dermatitis Non Specific Rash Prescriptions: hydrOXYzine tablet [Atarax tablet] 10 mg PO 4X/DAY PRN PRN #30 tab PRN Reason: Itching predniSONE tablet 20 mg PO BID #14 tab Referrals: Care Physician,No Primary [Primary Care Provider] - Jesse Forrester MD [STAFF PHYSICIAN] - 5-7 Days What to do if you have Problems For any increased pain, shortness of breath, bleeding, nausea or vomiting, chest pain, or any unexpected problems, contact your Primary Care Provider. Call [facility] ([phone]) or report to the closest Emergency Room. Call 911 if necessary. 11/05/18 0715 <Electronically signed by Arley Hernández DO> Date Arley Hernández DO Cosigner Signature (If Indicated): Date CC: No Primary Care Physician EMERGENCY DEPARTMENT Observed: 11/05/2018 Status: F Source: [place] SUMMARY 7:13 AM [facility] [place] [facility] Medical Records Department [address] [facility] [place] [address] Emergency Department Summary 11/05/18 0710 MR#: [id number] Acct: [id number] Name: JOSELYN MELENDEZ Rep #: [id number] : 1980 37 From: Arley Hernández DO PCP: Care Physician, No Primary Status: REG ER - ER Visit Summary Date of Service: 11/05/18 Chief Complaint: [Rash] History of Present Illness: The patient is a 37 F [presents the emergency department complaint of a rash that she has had for 2 days. Patient states initially the rash, started on her feet and ankles and spread up to her legs and trunk as well as her arms. Patient describes it as very pruritic. Patient states that she started taking an immune vitamin called immune C before the rash started but then she discontinued it. Patient also states that she used a new detergent to wash her laundry with but she also states that she discontinued that and we washed all her clothing and her old detergent. Patient denies any recent illness. She denies any fevers. She denies being on any new medications or antibiotics otherwise. She denies any difficulty swallowing or breathing at this time.] Physical Examination: HEENT-PERRLA, EOMI. Cranial nerves II through XII grossly intact. TMs clear. Mucous membranes moist. No adenopathy. Cardiovascular-regular rate and rhythm without murmur or ectopy Lungs-clear to auscultation, chest wall stable without crepitus or subcu emphysema Abdomen-normoactive bowel sounds, soft, nontender, no rebound or rigidity, no peritoneal signs. Skin exam-patient has a fine erythematous macular rash that involving the extremities as well as the trunk. The rash is pruritic. Patient does have some mild edema both ankles noted. No petechiae noted. No vesicles noted. Extremities-intact 4, normal range of motion, normal pulses, atraumatic] Test Results: [None indicated] Emergency Department Course and Treatment: [Patient will be started on prednisone and was given 60 mg p.o. in the department.] Treatment Plan: [We will treat with prednisone and Atarax. Patient will be given referral to surgical supervisor for follow-up.] Disposition: [Discharged home in stable condition] Impression: [Dermatitis-etiology uncertain] This note was generated with Paperlit dictation software. It may contain incorrect words, spelling, and punctuation that were not noted in review of the chart prior to signing ED Disposition - Plan for ED Patient: Chief Complaint: Rash Referrals: Care Physician,No Primary [Primary Care Provider] - What to do if you have Problems For any increased pain, shortness of breath, bleeding, nausea or vomiting, chest pain, or any unexpected problems, contact your Primary Care Provider. Call [facility] ([phone]) or report to the closest Emergency Room. Call 911 if necessary. 11/05/18 0713 <Electronically signed by Arley Hernández DO> Date Arley Hernández DO Cosigner Signature (If Indicated): Date CC: No Primary Care Physician UA Collected: 08/07/2018 Status: F Source: [facility] 4:20 PM [facility]OUNDATION REPOSITORY TYPE CODE TESTS RESULT OUT OF RANGE REFERENCE UNITS LAB SPCUA(FARAZ NC) UA Specimen Type Clean Catch LAB CLRUA(FARAZ NC) UA Color Yellow LAB APPUA(FARAZ Clear NC) UA Appear Unknown Slightly Cloudy LAB SGUA(LOIN C) UA Spec Grav 1.020 LAB GLUA(LOIN Negative mg/dL C) UA Glucose Negative LAB BILUA(FARAZ Negative NC) UA Bili Negative LAB KETUA(FARAZ Negative mg/dL NC) UA Ketones Negative LAB BLDUA(FARAZ Negative NC) UA Blood Negative LAB PHUA(LOIN C) UA pH 5.0 LAB PROUA(FARAZ Negative mg/dL NC) UA Protein Negative LAB UROUA(FARAZ E.U./dL NC) UA Urobilinogen 0.2 LAB NITUA(FARAZ Negative NC) UA Nitrite Negative LAB LEUUA(FARAZ Negative NC) UA Leuk Est Negative Performed By: #### UA, UAMICAO #### [address] [address] .URINALYSIS MICROSCOPIC Collected: 08/07/2018 Status: F [facility] REPOSITORY TYPE CODE TESTS RESULT OUT OF REFERENCE UNITS RANGE LAB WBCUA(LOIN None Seen /hpf C) UA WBC None Seen LAB RBCUA(LOIN None Seen /hpf C) UA RBC None Seen LAB EPIUA(LOIN None Seen /hpf C) UA Squam Epithelial None Seen LAB AMOUA(LOIN /hpf C) UA Amorphus 1+ Performed By: #### UA, UAMICAO #### [address] [address] PREGU Collected: 06/30/2018 Status: F Source: [facility] 6:21 [facility] REPOSITORY TYPE CODE TESTS RESULT OUT OF RANGE REFERENCE UNITS LAB PREGU(LOIN C) Test Negative Urine LAB PRUG1(LOIN C) Unknown test HCG not (u) int detected. Performed By: #### PREGU #### [address] [address] XR CHEST 2 VIEWS Observed: 06/30/2018 Status: F Source: [facility] 6:04 [facility] REPOSITORY ORIGINAL XR CHEST 2 VIEWS CLINICAL STATEMENT: SOB/Cough/Fever. COMPARISON: Chest radiographs, 12/26/2014 FINDINGS: The heart and mediastinal contours are within normal limits, unchanged as compared to the prior exam. No pulmonary vascular congestion, focal consolidation, pleural effusion, or pneumothorax i s identified. No acute osseous abnormality. IMPRESSION: No acute radiographic findings or significant change as compared to 12/26/2014. I have personally reviewed the images of this examination and agree with the resident's findings and interpretation. Interpreted By: Disha Mesa MD Preliminary Report By: Yassine Villarreal MD Electronically Signed By: Disha Mesa MD Dictated Date: 06/30/2018 6:21:00 PM Prelim Date: 06/30/2018 6:22:03 PM Sign Date: 06/30/2018 7:10:59 PM UA Collected: 06/30/2018 Status: F Source: [facility] 5:54 PM [facility] [place] REPOSITORY TYPE CODE TESTS RESULT OUT OF RANGE REFERENCE UNITS LAB SPCUA(FARAZ NC) UA Specimen Type Clean Catch LAB CLRUA(FARAZ NC) UA Color Yellow LAB APPUA(FARAZ Clear NC) UA Appear Unknown Cloudy LAB SGUA(LOIN C) UA Spec Grav 1.020 LAB GLUA(LOIN Negative mg/dL C) UA Glucose Negative LAB BILUA(FARAZ Negative NC) UA Bili Negative LAB KETUA(FARAZ Negative mg/dL NC) UA Ketones Negative LAB BLDUA(FARAZ Negative NC) UA Blood Negative LAB PHUA(LOIN C) UA pH 6.0 LAB PROUA(FARAZ Negative mg/dL NC) UA Protein Negative LAB UROUA(FARAZ E.U./dL NC) UA Urobilinogen 0.2 LAB NITUA(FARAZ Negative NC) UA Nitrite Unknown Positive LAB LEUUA(FARAZ Negative NC) UA Leuk Est Unknown Trace Performed By: #### UA, UAMICAO #### [place] [address] [address] .URINALYSIS MICROSCOPIC Collected: 06/30/2018 Status: F Source: [facility] () 5:54 PM [facility] REPOSITORY TYPE CODE TESTS RESULT OUT OF RANGE REFERENCE UNITS LAB WBCUA(LOIN None Seen /hpf C) Unknown UA WBC 0-5 LAB RBCUA(LOIN None Seen /hpf C) UA RBC None Seen LAB EPIUA(LOIN None Seen /hpf C) Unknown UA Squam Epithelial 0-5 LAB AMOUA(LOIN /hpf C) UA Amorphus 1+ LAB BACUA(LOIN /hpf C) Unknown UA Bacteria 3+ Performed By: #### UA, UAMICAO #### [address] [place], [place] [address] XR FOOT MINIMUM 3 Observed: 05/10/2018 Status: F Source: [facility] VIEWS RIGHT 1:26 AM [facility]OUNDATION REPOSITORY ORIGINAL XR FOOT MINIMUM 3 VIEWS RIGHT, 05/10/2018 1:28 AM INDICATION: pain COMPARISON: No FINDINGS: There are no acute fractures or dislocations. Alignment is within normal limits. Joint spaces are maintained. The soft tissues are normal in appearance IMPRESSION: Normal examination. Interpreted By: Jeff Parker MD Preliminary Report By: Jeff Parker MD Electronically Signed By: Jeff Parker MD Dictated Date: 05/10/2018 1:31:12 AM Prelim Date: 05/10/2018 1:31:12 AM Sign Date: 05/10/2018 1:33:52 AM PROGRESS Observed: 04/09/2018 Status: COMPLETED Source: [facility] 8:24 PM [facility] REPOSITORY HNO ID: [id number] Author: Jordan Aaron (Pa) Service: (none) Author Type: Physician Rubber Compounder Mixer Type: Progress Notes Filed: 04/09/2018 8:51 PM Note Text: Subjective HPI Joselyn Melendez is a 37 year old female who presents today for CC of bilateral ear pain and pruritic rash that started a couple days ago. Notes associated muffled sensation- feels like fluid is in the ears. States that they have been draining crusty drainage. C/o diffuse rash on arms, legs, and buttocks. Notes that her niece had a rash, but it was undiagnosed. Also noted later in the visit that her little cousin was recently diagnosed with Scabies. BP 110/72 Pulse 96 Temp 37.2 ?C (99 ?F) (Tympanic) Resp 18 Wt 59.1 kg (130 lb 6.4 oz) ALLERGIES Amoxicillin Comment:SHAKEY FEELING Darvocet A500 (Prop* Comment:FELT IMMOBOLIZED Erythromycin Comment:CAN'T REMEMBER REACTION Penicillins Shortness of Breath Comment:FEELS LIKE THROAT IS TIGHTENING Percocet (Oxycodone* Comment:FELT LIKE IT IMMOBOLIZED ME,I COULDN'T MOVE ACTIVE PROBLEM LIST Acute Back Pain With Sciatica Urinary Tract Infection Without Hematuria Review of patient's family history indicates: Alzheimer's Disease Other Comment: PGGM Alzheimer's Disease Paternal Grandfather Arthritis Maternal Grandmother Arthritis Maternal Grandfather Arthritis Paternal Grandmother Arthritis Paternal Grandfather Breast Cancer Maternal Grandmother Cancer Mother Comment: CERVICAL Cancer Maternal Aunt Comment: OVARIAN Cancer Maternal Aunt Comment: OVARIAN Cancer Maternal Grandmother Comment: OVARIAN AND CERVICAL CANCER Alcohol/Drug Paternal Uncle Comment: ETOH Alcohol/Drug Paternal Grandfather Comment: ETOH Osteoporosis Maternal Grandmother Thyroid Maternal Aunt Seizures Other Comment: NIECE Psychiatry Sister Comment: BIPOLAR DISORDER Cancer Brother Comment: THROAT CANCER Social History Marital status: Legally Spouse name: Years of education: 11 Number of children: 1 Occupational History Occupation Employer Comment HOMEMAKER Social History Main Topics Smoking status: Current Every Day Smoker Packs/day: 1.00 Years: 10.00 Types: Cigarettes Smokeless tobacco: Never Used Comment: cigarettes and vapes Alcohol use: Yes Comment: sometimes, NOT WHILE Drug use: No Comment: 2 liter caffiene daily Sexual activity: Yes Partners with: Male Review of Systems Constitutional: Negative for chills and fever. HENT: Positive for ear pain. Negative for hearing loss. Skin: Positive for itching and rash. Objective Physical Exam HENT: Right Ear: No drainage. Tympanic membrane is not perforated, not erythematous, not retracted and not bulging. No middle ear effusion. Left Ear: Left ear exhibits lacerations (Small abrasion (appears to be secondary to scratching) noted in mid EAC). No drainage. Tympanic membrane is not perforated, not erythematous, not retracted and not bulging. No middle ear effusion. Skin: Rash noted. Scattered erythematous papular rash with noted burrows on bilateral forearms, buttocks, and lower extremities bilaterally. Excoriated areas secondary to scratching. ASSESSMENT/PLAN: 1. Rash - ICD9: 782.1, ICD10: R21 (primary diagnosis) Appears to be consistent with scabies, especially given known exposure. Will go ahead and treat empirically with Permethrin. Patient encouraged to establish care with PCP, and to seek care for any persisting or worsening symptoms. 2. Otalgia of both ears - ICD9: 388.70, ICD10: H92.03 Abrasion noted in L ear canal- likely secondary to scratching- see plan above The patient indicates understanding of these issues and agrees with the plan. Jordan Aaron PA-C CNOV Observed: 04/09/2018 Status: COMPLETED Source: [facility] 8:15 PM [facility] REPOSITORY Office Visit (WSTR) JOSELYN MELENDEZ ([id number]) 1980 F Date Time Provider Department 04/09/18 8:15 PM JORDAN AARON (HYUN) [facility] During your visit today, we recorded the following information about you: Temperature Pulse Respiration Blood pressure 99 degrees 96/minute 18/minute 110/72 Weight 59.1 kg Jordan Aaron PA-C 04/09/2018 8:51 PM Signed Subjective HPI Bambigianfranco Melendez is a 37 year old female who presents today for CC of bilateral ear pain and pruritic rash that started a couple days ago. Notes associated muffled sensation- feels like fluid is in the ears. States that they have been draining crusty drainage. C/o diffuse rash on arms, legs, and buttocks. Notes that her niece had a rash, but it was undiagnosed. Also noted later in the visit that her little cousin was recently diagnosed with Scabies. BP 110/72 Pulse 96 Temp 37.2 ?C (99 ?F) (Tympanic) Resp 18 Wt 59.1 kg (130 lb 6.4 oz) ALLERGIES Amoxicillin Comment:SHAKEY FEELING Darvocet A500 (Prop* Comment:FELT IMMOBOLIZED Erythromycin Comment:CAN'T REMEMBER REACTION Penicillins Shortness of Breath Comment:FEELS LIKE THROAT IS TIGHTENING Percocet (Oxycodone* Comment:FELT LIKE IT IMMOBOLIZED ME,I COULDN'T MOVE ACTIVE PROBLEM LIST Acute Back Pain With Sciatica Urinary Tract Infection Without Hematuria Review of patient's family history indicates: Alzheimer's Disease Other Comment: PGGM Alzheimer's Disease Paternal Grandfather Arthritis Maternal Grandmother Arthritis Maternal Grandfather Arthritis Paternal Grandmother Arthritis Paternal Grandfather Breast Cancer Maternal Grandmother Cancer Mother Comment: CERVICAL Cancer Maternal Aunt Comment: OVARIAN Cancer Maternal Aunt Comment: OVARIAN Cancer Maternal Grandmother Comment: OVARIAN AND CERVICAL CANCER Alcohol/Drug Paternal Uncle Comment: ETOH Alcohol/Drug Paternal Grandfather Comment: ETOH Osteoporosis Maternal Grandmother Thyroid Maternal Aunt Seizures Other Comment: NIECE Psychiatry Sister Comment: BIPOLAR DISORDER Cancer Brother Comment: THROAT CANCER Social History Marital status: Legally Spouse name: Years of education: 11 Number of children: 1 Occupational History Occupation Employer Comment HOMEMAKER Social History Main Topics Smoking status: Current Every Day Smoker Packs/day: 1.00 Years: 10.00 Types: Cigarettes Smokeless tobacco: Never Used Comment: cigarettes and vapes Alcohol use: Yes Comment: sometimes, NOT WHILE Drug use: No Comment: 2 liter caffiene daily Sexual activity: Yes Partners with: Male Review of Systems Constitutional: Negative for chills and fever. HENT: Positive for ear pain. Negative for hearing loss. Skin: Positive for itching and rash. Objective Physical Exam HENT: Right Ear: No drainage. Tympanic membrane is not perforated, not erythematous, not retracted and not bulging. No middle ear effusion. Left Ear: Left ear exhibits lacerations (Small abrasion (appears to be secondary to scratching) noted in mid EAC). No drainage. Tympanic membrane is not perforated, not erythematous, not retracted and not bulging. No middle ear effusion. Skin: Rash noted. Scattered erythematous papular rash with noted burrows on bilateral forearms, buttocks, and lower extremities bilaterally. Excoriated areas secondary to scratching. ASSESSMENT/PLAN: 1. Rash - ICD9: 782.1, ICD10: R21 (primary diagnosis) Appears to be consistent with scabies, especially given known exposure. Will go ahead and treat empirically with Permethrin. Patient encouraged to establish care with PCP, and to seek care for any persisting or worsening symptoms. 2. Otalgia of both ears - ICD9: 388.70, ICD10: H92.03 Abrasion noted in L ear canal- likely secondary to scratching- see plan above The patient indicates understanding of these issues and agrees with the plan. Jordan Aaron PA-C Referring Provider: SELF [[id number]] Allergies As of Date: 04/09/2018 Noted Allergy Reaction AMOXICILLIN 08/14/2005 Comments: EVA FEELING DARVOCET A500 (PROPOXYPHENE N-LEANDRO*08/14/2005 Comments: FELT IMMOBOLIZED ERYTHROMYCIN 08/14/2005 Comments: CAN'T REMEMBER REACTION PENICILLINS 08/14/2005 12 - Shortness of Breath Comments: FEELS LIKE THROAT IS TIGHTENING PERCOCET (OXYCODONE-ACETAMINOPHEN)08/14/2005 Comments: FELT LIKE IT IMMOBOLIZED ME,I COULDN'T MOVE Date Reviewed: 04/09/2018 Reviewed by: Haily Quiñones LPN - Fully Assessed Reason for Visit: bilateral ear pain and body rash [Other] Cmt: ear pain x 2 days and rash for about a week but worse the last 3 days Primary Visit Diagnosis:Rash [R21] Other Visit Diagnosis:Otalgia of both ears [H92.03] Order(s):permethrin (ELIMITE) 5 % creamApply 1 application to affected area one time only for 1 dose. massage into skin from neck to feet, leave on 8-12hrs, wash off; Info: repeat 2wks if live mites persist. Itching may persist after effective treatment.Disp: 1 BottleRfl: 1 Prescriptions as of 04/09/2018 Sig: POLYETHYLENE GLYCOL 3350 17 G* Take 17 g by mouth once daily. PERMETHRIN 5 % TOPICAL CREAM Apply 1 application to affect* CRANBERRY 500 MG CAPSULE Take by mouth. PROBIOTIC BLEND ORAL Take 1 capsule by mouth once * Problem List As Of Date 04/09/2018 Noted Resolved Supervision of other high-risk (V23.89*INVALID FOR*07/26/2016 Acute back pain with sciatica [M54.40] INVALID FOR* Urinary tract infection without hematuria [N39.*INVALID FOR* Prescriptions ordered this encounter Disp Refills Start End PERMETHRIN 5 % TOPICAL CREAM 1 Carmine* 1 04/09/2018 04/09/2018 Class: Print RX Route: TOPICAL Sig: Apply 1 application to affected area one time only for 1 dose. massage into skin from neck to feet, leave on 8-12hrs, wash off; Info: repeat 2wks if live mites persist. Itching may persist after effective treatment. Encounter Status:Closed by JORDAN AARON on 04/09/18 PROGRESS Observed: 03/13/2018 Status: COMPLETED Source: [facility] 11:16 AM [facility] REPOSITORY HNO ID: [id number] Author: Shayna Cesar Service: (none) Author Type: Nurse Practitioner Type: Progress Notes Filed: 03/13/2018 1:02 PM Note Text: Subjective HPI HPI Joselyn Melendez is a 37 year old female who presents today for CC of urinary frequency. This started 2 weeks. Has tried nothing. Symptoms are worsened by nothing. Risk factors hx of uti. Rash on bilateral arms/ face for 2 weeks, itchy, tried nothing Constipated recently, last bm today. .Patient presents with: body rash and urgency, frequency and oder with urination: rash x 2 days and urinary issues x 2 weeks-she also is afraid that she has some kink of pin worm that her dad has that he got from his dog PAST MEDICAL HISTORY Diagnosis Date - Condyloma acuminatum - Dysthymic disorder Depression (non-psychotic)/ANXIETY - Urinary calculus, unspecified Renal stones - Urinary tract infection, site not specified Recurrent UTI's PAST SURGICAL HISTORY Procedure Laterality Date - COLPOSCOPY (VAGINOSCOPY) 1996 Colposcopy - DANDC, DIAG AND/OR THERAPEUTIC Dilation AND curettage - PAST SURGICAL HISTORY OF 1996 CRYOSURGERY OF VAGINAL CONDYLOMA - PAST SURGICAL HISTORY OF ECTOPIC - PAST SURGICAL HISTORY OF L ARM, TO REPAIR LACERATION ALLERGIES Amoxicillin; Darvocet A500 [Propoxyphene N-Acetaminophen]; Erythromycin; Penicillins; Percocet [Oxycodone-Acetaminophen] MEDICATIONS Cranberry 500 mg cap Take by mouth. L.ACID/L.CASEI/B.BIF/B.VINCENT/FOS (PROBIOTIC BLEND ORAL) Take 1 capsule by mouth once daily. FAMILY HISTORY Problem Relation Age of Onset - Alzheimer's Disease Other PGGM - Alzheimer's Disease Paternal Grandfather - Arthritis Maternal Grandmother - Arthritis Maternal Grandfather - Arthritis Paternal Grandmother - Arthritis Paternal Grandfather - Breast Cancer Maternal Grandmother - Cancer Mother CERVICAL - Cancer Maternal Aunt OVARIAN - Cancer Maternal Aunt OVARIAN - Cancer Maternal Grandmother OVARIAN AND CERVICAL CANCER - Alcohol/Drug Paternal Uncle ETOH - Alcohol/Drug Paternal Grandfather ETOH - Osteoporosis Maternal Grandmother - Thyroid Maternal Aunt - Seizures Other NIECE - Psychiatry Sister BIPOLAR DISORDER - Cancer Brother THROAT CANCER Social History Substance Use Topics - Smoking status: Current Every Day Smoker Packs/day: 1.00 Years: 10.00 Types: Cigarettes - Smokeless tobacco: Never Used Comment: cigarettes and vapes - Alcohol use Yes Comment: sometimes, NOT WHILE Review of Systems Constitutional: Negative for chills, fever and weight loss. Respiratory: Negative for cough, shortness of breath and wheezing. Cardiovascular: Negative for chest pain and palpitations. Gastrointestinal: Positive for constipation. Negative for abdominal pain, blood in stool, diarrhea, heartburn, melena, nausea and vomiting. Genitourinary: Positive for dysuria, frequency and urgency. Negative for flank pain and hematuria. Musculoskeletal: Negative for back pain, joint pain and neck pain. Skin: Positive for itching and rash. Objective Blood pressure 110/70, pulse 79, temperature 36.6 ?C (97.8 ?F), temperature source Tympanic, resp. rate 18, weight 60.8 kg (134 lb). Physical Exam Constitutional: She is oriented to person, place, and time and well-developed, well-nourished, and in no distress. Non-toxic appearance. She does not have a sickly appearance. No distress. HENT: Head: Normocephalic and atraumatic. Right Ear: Hearing, tympanic membrane, external ear and ear canal normal. Left Ear: Hearing, tympanic membrane, external ear and ear canal normal. Nose: Nose normal. Mouth/Throat: Uvula is midline, oropharynx is clear and moist and mucous membranes are normal. Eyes: Conjunctivae and lids are normal. Pupils are equal, round, and reactive to light. Right eye exhibits no discharge. Left eye exhibits no discharge. No scleral icterus. Neck: Trachea normal and normal range of motion. Neck supple. Cardiovascular: Normal rate, regular rhythm and normal heart sounds. Pulmonary/Chest: Effort normal and breath sounds normal. Abdominal: Soft. Normal appearance and bowel sounds are normal. There is no hepatosplenomegaly. There is tenderness (mild) in the left upper quadrant and left lower quadrant. There is no CVA tenderness. Lymphadenopathy: She has cervical adenopathy. Right cervical: Superficial cervical adenopathy present. Left cervical: Superficial cervical adenopathy present. Neurological: She is alert and oriented to person, place, and time. Skin: Skin is warm and dry. No rash noted. She is not diaphoretic. ASSESSMENT/PLAN: 1. Urgency of urination - ICD9: 788.63, ICD10: R39.15 (primary diagnosis) Urine pos for leuks, kets -will treat d/t classic symptoms for patient -discussed red flags and reasons for urgent f/u - UA DIP B/O - URINE CULTURE 2. Constipation, unspecified constipation type - ICD9: 564.00, ICD10: K59.00 Push fluids -f/u with pcp if symptoms persist/worsen -ER if severe constipation/abdominal pain - CEPHALEXIN 500 MG CAPSULE - POLYETHYLENE GLYCOL 3350 17 GRAM/DOSE ORAL POWDER 3. Rash - ICD9: 782.1, ICD10: R21 Unknown etilogy, may be contact derm -will try medrol, f/u with pcp if symptoms persist/change. - METHYLPREDNISOLONE 4 MG TABLETS IN A DOSE PACK Prescription instructions reviewed with patient as applicable. Patient advised if symptoms do not improve or if symptoms worsen sooner, to contact the office for further evaluation by their primary care physician. Potential red flag symptoms discussed with the patient. Reviewed appropriate action plan to take if red flag symptoms occur. Patient agreeable to treatment plan. Shayna Cesar APRN.CNP CNOV Observed: 03/13/2018 Status: COMPLETED Source: [place] 11:00 AM [facility] REPOSITORY Office Visit (WSTR) JOSELYN MELENDEZ ([id number]) 1980 F Date Time Provider Department 03/13/18 11:00 AM SHAYNA CESAR (JOSEY) WSTR During your visit today, we recorded the following information about you: Temperature Pulse Respiration Blood pressure 97.8 degrees 79/minute 18/minute 110/70 Weight 60.8 kg Shayna Cesar APRN.CNP 03/13/2018 1:02 PM Signed Subjective HPI HPI Bambigianfranco Damien Janneth is a 37 year old female who presents today for CC of urinary frequency. This started 2 weeks. Has tried nothing. Symptoms are worsened by nothing. Risk factors hx of uti. Rash on bilateral arms/ face for 2 weeks, itchy, tried nothing Constipated recently, last bm today. .Patient presents with: body rash and urgency, frequency and oder with urination: rash x 2 days and urinary issues x 2 weeks-she also is afraid that she has some kink of pin worm that her dad has that he got from his dog PAST MEDICAL HISTORY Diagnosis Date - Condyloma acuminatum - Dysthymic disorder Depression (non-psychotic)/ANXIETY - Urinary calculus, unspecified Renal stones - Urinary tract infection, site not specified Recurrent UTI's PAST SURGICAL HISTORY Procedure Laterality Date - COLPOSCOPY (VAGINOSCOPY) 1996 Colposcopy - DANDamp;C, DIAG AND/OR THERAPEUTIC Dilation ANDamp; curettage - PAST SURGICAL HISTORY OF 1996 CRYOSURGERY OF VAGINAL CONDYLOMA - PAST SURGICAL HISTORY OF ECTOPIC - PAST SURGICAL HISTORY OF L ARM, TO REPAIR LACERATION ALLERGIES Amoxicillin; Darvocet A500 [Propoxyphene N-Acetaminophen]; Erythromycin; Penicillins; Percocet [Oxycodone-Acetaminophen] MEDICATIONS Cranberry 500 mg cap Take by mouth. L.ACID/L.CASEI/B.BIF/B.VINCENT/FOS (PROBIOTIC BLEND ORAL) Take 1 capsule by mouth once daily. FAMILY HISTORY Problem Relation Age of Onset - Alzheimer's Disease Other PGGM - Alzheimer's Disease Paternal Grandfather - Arthritis Maternal Grandmother - Arthritis Maternal Grandfather - Arthritis Paternal Grandmother - Arthritis Paternal Grandfather - Breast Cancer Maternal Grandmother - Cancer Mother CERVICAL - Cancer Maternal Aunt OVARIAN - Cancer Maternal Aunt OVARIAN - Cancer Maternal Grandmother OVARIAN AND CERVICAL CANCER - Alcohol/Drug Paternal Uncle ETOH - Alcohol/Drug Paternal Grandfather ETOH - Osteoporosis Maternal Grandmother - Thyroid Maternal Aunt - Seizures Other NIECE - Psychiatry Sister BIPOLAR DISORDER - Cancer Brother THROAT CANCER Social History Substance Use Topics - Smoking status: Current Every Day Smoker Packs/day: 1.00 Years: 10.00 Types: Cigarettes - Smokeless tobacco: Never Used Comment: cigarettes and vapes - Alcohol use Yes Comment: sometimes, NOT WHILE Review of Systems Constitutional: Negative for chills, fever and weight loss. Respiratory: Negative for cough, shortness of breath and wheezing. Cardiovascular: Negative for chest pain and palpitations. Gastrointestinal: Positive for constipation. Negative for abdominal pain, blood in stool, diarrhea, heartburn, melena, nausea and vomiting. Genitourinary: Positive for dysuria, frequency and urgency. Negative for flank pain and hematuria. Musculoskeletal: Negative for back pain, joint pain and neck pain. Skin: Positive for itching and rash. Objective Blood pressure 110/70, pulse 79, temperature 36.6 ?C (97.8 ?F), temperature source Tympanic, resp. rate 18, weight 60.8 kg (134 lb). Physical Exam Constitutional: She is oriented to person, place, and time and well-developed, well-nourished, and in no distress. Non-toxic appearance. She does not have a sickly appearance. No distress. HENT: Head: Normocephalic and atraumatic. Right Ear: Hearing, tympanic membrane, external ear and ear canal normal. Left Ear: Hearing, tympanic membrane, external ear and ear canal normal. Nose: Nose normal. Mouth/Throat: Uvula is midline, oropharynx is clear and moist and mucous membranes are normal. Eyes: Conjunctivae and lids are normal. Pupils are equal, round, and reactive to light. Right eye exhibits no discharge. Left eye exhibits no discharge. No scleral icterus. Neck: Trachea normal and normal range of motion. Neck supple. Cardiovascular: Normal rate, regular rhythm and normal heart sounds. Pulmonary/Chest: Effort normal and breath sounds normal. Abdominal: Soft. Normal appearance and bowel sounds are normal. There is no hepatosplenomegaly. There is tenderness (mild) in the left upper quadrant and left lower quadrant. There is no CVA tenderness. Lymphadenopathy: She has cervical adenopathy. Right cervical: Superficial cervical adenopathy present. Left cervical: Superficial cervical adenopathy present. Neurological: She is alert and oriented to person, place, and time. Skin: Skin is warm and dry. No rash noted. She is not diaphoretic. ASSESSMENT/PLAN: 1. Urgency of urination - ICD9: 788.63, ICD10: R39.15 (primary diagnosis) Urine pos for leuks, kets -will treat d/t classic symptoms for patient -discussed red flags and reasons for urgent f/u - UA DIP B/O - URINE CULTURE 2. Constipation, unspecified constipation type - ICD9: 564.00, ICD10: K59.00 Push fluids -f/u with pcp if symptoms persist/worsen -ER if severe constipation/abdominal pain - CEPHALEXIN 500 MG CAPSULE - POLYETHYLENE GLYCOL 3350 17 GRAM/DOSE ORAL POWDER 3. Rash - ICD9: 782.1, ICD10: R21 Unknown etilogy, may be contact derm -will try medrol, f/u with pcp if symptoms persist/change. - METHYLPREDNISOLONE 4 MG TABLETS IN A DOSE PACK Prescription instructions reviewed with patient as applicable. Patient advised if symptoms do not improve or if symptoms worsen sooner, to contact the office for further evaluation by their primary care physician. Potential red flag symptoms discussed with the patient. Reviewed appropriate action plan to take if red flag symptoms occur. Patient agreeable to treatment plan. Shayna Cesar APRN.JOSEY Cesar APRN.CNP 03/13/2018 11:36 AM Signed Constipation What is constipation? Constipation is infrequent or uncomfortable bowel movements. Often the bowel movements are small, hard, or dry. How does it occur? You may have constipation because: You wait too long to have bowel movements. You do not drink enough fluids. You overuse laxatives. You do not eat enough fiber. You don't have enough physical activity. You are taking a medicine that has a side effect of constipation. Some medical conditions and diseases can also cause constipation. What are the symptoms? Symptoms may include having: small bowel movements hard, dry bowel movements uncomfortable or painful bowel movements that are hard to pass a longer time than usual between bowel movements. Normal frequencies for bowel movements may vary from 3 times a day to once every 3 days, depending on the person. What's important is whether there is a change in what has been normal for you. How is it treated? To ease your constipation: Do not delay bowel movements. Make sure that you go to the bathroom whenever you feel that you need to go. Drink more fluids. Increase the amount of fiber in your diet. Increase your physical activity. Ask your health care provider if any medicines you are taking may be causing constipation. Tell your health care provider if: You start having constipation after years of normal bowel movements. You have bouts of constipation alternating with bouts of diarrhea. You have pain during bowel movements or for some time afterward. Your bowel movements are tarry or have blood in them. You lose weight unexpectedly. How can I take care of myself? To help take care of yourself: Eat fresh vegetables and fruit every day. Exercise regularly. For example, walk for 20 minutes every day. Drink prune juice or eat stewed fruits at breakfast. Drink plenty of fluids. Increase the whole-grain fiber in your diet by eating cereals with 5 or more grams of fiber per bowl (for example, shredded wheat or bran flakes). Take a fiber product like Metamucil or Citrucel once or twice a day for several days if you are constipated. If the problem continues, check with your health care provider, but generally you can take 1 to 3 doses of these products a day regularly. Avoid using laxatives. Avoid using cathartics, which are products that will cause a fluid bowel movement. Cathartics irritate the lining of the intestines. URINARY TRACT INFECTION GENERAL INFORMATION: A urinary tract infection (UTI) is an infection of the bladder or kidneys. A bladder infection, called cystitis, is the more common type. If the infection travels up to the kidneys, it is called pyelonephritis. This can be more serious. UTIs are a common problem in women. Having sexual relations can leave a woman more susceptible to developing a UTI, but it is not sexually transmitted like gonorrhea. Some women have a problem with recurrent UTIs. INSTRUCTIONS: 1. Your doctor prescribed an antibiotic to treat the UTI. Take exactly as directed. Be sure to take all the medication prescribed, even if your symptoms disappear. If you stop treatment early, the infection may not be fully treated and the symptoms could come back again. 2. Get plenty of rest. You may take acetaminophen for fever and aches. 3. Drink 6 to 8 glasses of fluids, especially water, every day. This helps wash out germs from your urinary tract. Cranberry juice or other sources of vitamin C are also good for you. 4. Urinate often, as soon as you feel the urge. Empty your bladder completely. Urinate before and after you have sex. 5. Always wipe from front to back after going to the bathroom. This pushes germs away from your bladder, rather than towards it. 6. Showers are better than baths, and you should wash the genital area daily. Avoid bubble bath or bath oils if you do take a bath. 7. Wear underwear and pantyhose with a cotton crotch. CONTACT YOUR DOCTOR: 1. You have a temperature over 102F (38.8C) after 48 hours on medication. 2. You notice blood in your urine. 3. Your symptoms don't improve in 2 days. 4. You develop nausea, vomiting, diarrhea, or a rash. 5. You develop new or unexplained symptoms. These may be related to the medication you are taking. 6. Your symptoms return after you finish treatment. RETURN TO THE EMERGENCY DEPARTMENT IF: You develop vomiting and can't keep your medication or fluids down. Referring Provider: SELF [[id number]] Allergies As of Date: 03/13/2018 Noted Allergy Reaction AMOXICILLIN 08/14/2005 Comments: SHAKEY FEELING DARVOCET A500 (PROPOXYPHENE N-LEANDRO*08/14/2005 Comments: FELT IMMOBOLIZED ERYTHROMYCIN 08/14/2005 Comments: CAN'T REMEMBER REACTION PENICILLINS 08/14/2005 12 - Shortness of Breath Comments: FEELS LIKE THROAT IS TIGHTENING PERCOCET (OXYCODONE-ACETAMINOPHEN)08/14/2005 Comments: FELT LIKE IT IMMOBOLIZED ME,I COULDN'T MOVE Date Reviewed: 03/13/2018 Reviewed by: Shayna ([facility]) - Fully Assessed Reason for Visit: body rash and urgency, frequency and oder with urination [Other] Cmt: rash x 2 days and urinar- y issues x 2 weeks-- she also is afraid that she has some kink of pin worm that her dad has that he got from his dog Primary Visit Diagnosis:Urgency of urination [R39.15] Other Visit Diagnoses:Constipation, unspecified constipation type [K59.00] Rash [R21] Order(s):UA DIP B/O [2768110] Order #: [id number] URINE CULTURE [SQURCUL] Order #: [id number] methylPREDNISolone (MEDROL, STEPHANIE,) 4 mg Dose-PackFollow dosing instructions, take with food.Disp: 1 PackageRfl: 0 cephALEXin (KEFLEX) 500 mg capsuleTake 1 capsule by mouth twice daily for 10 days.Disp: 20 capsuleRfl: 0 polyethylene glycol 3350 (MIRALAX, GLYCOLAX) 17 gram/dose powderTake 17 g by mouth once daily.Disp: 1 BottleRfl: 0 Prescriptions as of 03/13/2018 Sig: METHYLPREDNISOLONE 4 MG TABLE* Follow dosing instructions, t* CEPHALEXIN 500 MG CAPSULE Take 1 capsule by mouth twice* POLYETHYLENE GLYCOL 3350 17 G* Take 17 g by mouth once daily. CRANBERRY 500 MG CAPSULE Take by mouth. PROBIOTIC BLEND ORAL Take 1 capsule by mouth once * Medication notes this encounter CRANBERRY 500 MG CAPSULE >> Haily Besancon [employer]OCIATE 03/13/2018 11:06 AM >> BESANCON, HAILY INSIDE SALES ASSOCIATE [facility] Mar 13, 2018 11:06 AM Not Taking PROBIOTIC BLEND ORAL >> Haily Besancon [employer] SALES ASSOCIATE 03/13/2018 11:06 AM >> BESANCON, HAILY [employer]IDE SALES ASSOCIATE [facility] Mar 13, 2018 11:06 AM Not Taking Problem List As Of Date 03/13/2018 Noted Resolved Supervision of other high-risk (V23.89*INVALID FOR*07/26/2016 Acute back pain with sciatica [M54.40] INVALID FOR* Urinary tract infection without hematuria [N39.*INVALID FOR* Other instructions from your clinician: Constipation What is constipation? Constipation is infrequent or uncomfortable bowel movements. Often the bowel movements are small, hard, or dry. How does it occur? You may have constipation because: You wait too long to have bowel movements. You do not drink enough fluids. You overuse laxatives. You do not eat enough fiber. You don't have enough physical activity. You are taking a medicine that has a side effect of constipation. Some medical conditions and diseases can also cause constipation. What are the symptoms? Symptoms may include having: small bowel movements hard, dry bowel movements uncomfortable or painful bowel movements that are hard to pass a longer time than usual between bowel movements. Normal frequencies for bowel movements may vary from 3 times a day to once every 3 days, depending on the person. What's important is whether there is a change in what has been normal for you. How is it treated? To ease your constipation: Do not delay bowel movements. Make sure that you go to the bathroom whenever you feel that you need to go. Drink more fluids. Increase the amount of fiber in your diet. Increase your physical activity. Ask your health care provider if any medicines you are taking may be causing constipation. Tell your health care provider if: You start having constipation after years of normal bowel movements. You have bouts of constipation alternating with bouts of diarrhea. You have pain during bowel movements or for some time afterward. Your bowel movements are tarry or have blood in them. You lose weight unexpectedly. How can I take care of myself? To help take care of yourself: Eat fresh vegetables and fruit every day. Exercise regularly. For example, walk for 20 minutes every day. Drink prune juice or eat stewed fruits at breakfast. Drink plenty of fluids. Increase the whole-grain fiber in your diet by eating cereals with 5 or more grams of fiber per bowl (for example, shredded wheat or bran flakes). Take a fiber product like Metamucil or Citrucel once or twice a day for several days if you are constipated. If the problem continues, check with your health care provider, but generally you can take 1 to 3 doses of these products a day regularly. Avoid using laxatives. Avoid using cathartics, which are products that will cause a fluid bowel movement. Cathartics irritate the lining of the intestines. URINARY TRACT INFECTION GENERAL INFORMATION: A urinary tract infection (UTI) is an infection of the bladder or kidneys. A bladder infection, called cystitis, is the more common type. If the infection travels up to the kidneys, it is called pyelonephritis. This can be more serious. UTIs are a common problem in women. Having sexual relations can leave a woman more susceptible to developing a UTI, but it is not sexually transmitted like gonorrhea. Some women have a problem with recurrent UTIs. INSTRUCTIONS: 1. Your doctor prescribed an antibiotic to treat the UTI. Take exactly as directed. Be sure to take all the medication prescribed, even if your symptoms disappear. If you stop treatment early, the infection may not be fully treated and the symptoms could come back again. 2. Get plenty of rest. You may take acetaminophen for fever and aches. 3. Drink 6 to 8 glasses of fluids, especially water, every day. This helps wash out germs from your urinary tract. Cranberry juice or other sources of vitamin C are also good for you. 4. Urinate often, as soon as you feel the urge. Empty your bladder completely. Urinate before and after you have sex. 5. Always wipe from front to back after going to the bathroom. This pushes germs away from your bladder, rather than towards it. 6. Showers are better than baths, and you should wash the genital area daily. Avoid bubble bath or bath oils if you do take a bath. 7. Wear underwear and pantyhose with a cotton crotch. CONTACT YOUR DOCTOR: 1. You have a temperature over 102F (38.8C) after 48 hours on medication. 2. You notice blood in your urine. 3. Your symptoms don't improve in 2 days. 4. You develop nausea, vomiting, diarrhea, or a rash. 5. You develop new or unexplained symptoms. These may be related to the medication you are taking. 6. Your symptoms return after you finish treatment. RETURN TO THE EMERGENCY DEPARTMENT IF: You develop vomiting and can't keep your medication or fluids down. Prescriptions ordered this encounter Disp Refills Start End METHYLPREDNISOLONE 4 MG TABLETS IN A* 1 Pa* 0 03/13/2018 03/19/2018 Sig: Follow dosing instructions, take with food. CEPHALEXIN 500 MG CAPSULE 20 c* 0 03/13/2018 03/23/2018 Route: ORAL Sig: Take 1 capsule by mouth twice daily for 10 days. POLYETHYLENE GLYCOL 3350 17 GRAM/DOS* 1 Carmine* 0 03/13/2018 Route: ORAL Sig: Take 17 g by mouth once daily. Encounter Status:Closed by SHAYNA CESAR CNP on 03/13/18 Observed: 03/13/2018 Status: F Source: [place] URINE CULTURE 4:35 AM [facility] REPOSITORY Sp. Request/Comment: - Specimen received in preservative Culture Result - >=100,000 CFU/ml Escherichia coli --> ABNORMAL ALERT ORGANISM: Escherichia coli METHOD: Minimum inhibitory concentration(Vitek) Antibiotic Interp VAL Status Ampicillin RESISTANT >=32 F Gentamicin SUSCEPTIBLE <=1 F Trimeth sulfameth SUSCEPTIBLE <=20 F Cefazolin SUSCEPTIBLE 8 F CLSI breakpoints for therapy of uncomplicated UTI's due to E.coli, K.pneumoniae, and P.mirabilis were applied and may be used to predict the activity of oral agents(cefaclor, cefdinir, cefpodoxime, cefp rozil, cefuroxime, cephalexin, loracarbef). Ciprofloxacin SUSCEPTIBLE <=0.25 F Nitrofurantoin INTERMEDIATE 64 F Cefepime SUSCEPTIBLE <=1 F Piperacillin/Tazobac SUSCEPTIBLE <=4 F Ampicillin Sulbact RESISTANT >=32 F Ceftriaxone SUSCEPTIBLE <=1 F Meropenem SUSCEPTIBLE <=0.25 F Ertapenem SUSCEPTIBLE <=0.5 F Performed By: #### URCUL #### [facility] [address] [place] [id number] LORIE Observed: 12/31/2017 Status: COMPLETED Source: [place] 12:00 AM [facility] REPOSITORY Telephone (UROLMN) JOSELYN MELENDEZ ([id number]) 1980 F Date Time Provider Department 12/31/17 KEITH HOROWITZ) MARANDA During your visit today, we recorded the following information about you: Asya Montano Ma 12/31/2017 3:29 PM Signed Please let her know +ve culture and antibiotic sent [facility] 'Thank you, Victor Hugo (Routing comment) Pt notified of results and that The following approved medication requests have been transmitted electronically by Keith Horowitz PA-C Signed Prescriptions Disp Refills doxycycline monohydrate 100 mg tablet 20 tablet 0 Sig: Take 1 tablet by mouth twice daily for 10 days. Authorizing Provider: KEITH HOROWITZ) Asya Montano Ma Allergies As of Date: 12/31/2017 Noted Allergy Reaction AMOXICILLIN 08/14/2005 Comments: SHAKEY FEELING DARVOCET A500 (PROPOXYPHENE N-LEANDRO*08/14/2005 Comments: FELT IMMOBOLIZED ERYTHROMYCIN 08/14/2005 Comments: CAN'T REMEMBER REACTION PENICILLINS 08/14/2005 12 - Shortness of Breath Comments: FEELS LIKE THROAT IS TIGHTENING PERCOCET (OXYCODONE-ACETAMINOPHEN)08/14/2005 Comments: FELT LIKE IT IMMOBOLIZED ME,I COULDN'T MOVE Date Reviewed: 12/25/2017 Reviewed by: Rivas Castro LPN - Fully Assessed Reason for Visit: Refill Request [94] Order(s):doxycycline monohydrate 100 mg tabletTake 1 tablet by mouth twice daily for 10 days.Disp: 20 tabletRfl: 0 Prescriptions as of 12/31/2017 Sig: DOXYCYCLINE MONOHYDRATE 100 M* Take 1 tablet by mouth twice * CRANBERRY 500 MG CAPSULE Take by mouth. PROBIOTIC BLEND ORAL Take 1 capsule by mouth once * Problem List As Of Date 12/31/2017 Noted Resolved Supervision of other high-risk (V23.89*INVALID FOR*07/26/2016 Acute back pain with sciatica [M54.40] INVALID FOR* Urinary tract infection without hematuria [N39.*INVALID FOR* Prescriptions ordered this encounter Disp Refills Start End DOXYCYCLINE MONOHYDRATE 100 MG TABLET 20 t* 0 12/31/2017 01/10/2018 Route: ORAL Sig: Take 1 tablet by mouth twice daily for 10 days. Encounter Status:Closed by KEITH HOROWITZ PA-C on 12/31/17 PROGRESS Observed: 12/27/2017 Status: COMPLETED Source: [place] 10:[address] [facility] REPOSITORY HNO ID: [id number] Author: Keith Horowitz (Pa) Service: (none) Author Type: Physician Rubber Compounder Mixer Type: Progress Notes Filed: 12/27/2017 11:14 AM Note Text: [facility] PATIENT INFO: Joselyn Melendez 37 year old PCP: No Pcp Referred by: Self CHIEF COMPLAINT: UTI HPI: This is a 37 year old female, who has had a long history of UTI's that seem to come back after antibiotics are stopped. which started in 2014, and involves the Urine and Vagina4 Patient states this moderate in severity and moderate in quality, and is happening constantly Aggravating factors: Yes , she has been diagnosed Bacterial Vaginosis several times. Alleviating Factors: No . And the patient c/o's denies having Fever, Chills, Rigors, Nausea and Vomiting VOIDING SYMPTOMS: Urgency: Yes Frequency: Yes Dysuria: Yes Gross Hematuria: No U/A Dipstick Positive Blood - Only Yes Incomplete Voiding: No Double Voiding: No Post Void Dribbling: No Incontinence: No REVIEW OF SYSTEMS: General: General: Well developed, well nourished. No acute distress HEENT: Negative for sore throat, difficulty swallowing. Negative for frequent or significant headaches, changes in vision or hearing. Cardiovascular: No history of cardiovascular symtoms or problems. No history of angina, CHF, MA, cardiac surgery of stents. Respiratory: Negative for current cough, dyspnea. No hx of pneumonia in the past six weeks Gastrointestinal: No history of GERD, PUD, abd pain, difficulty swallowing, GI bleed. Renal: Negative for renal failure and No history of dialysis Musculoskeletal: Negative for joint pain or swelling, back pain or muscle pain. Skin: Negative for lesions, rash and itching. Psychological: No history of psychiatric symptoms or problems. Neurologic: No history of TIA's, stroke, [employer] tumor, impaired sensorium, hemiplegia, paraplegia or quadriplegia. No neurological symptoms or problems. Hematology/Oncology: No history of bleeding or clotting disorder. Pt is not taking anti-coagulation or platelet medications. No history of hematological symptoms or problems. Endocrine: No history of endocrinological symtoms or problems No history of DM; has not taken steroids w/in past 30 days. Negative for excessive sweating, thirst or hunger PHYSICAL EXAM: General Appearance/ Constitutional: Well developed, well nourished, and in no apparent distress Head and Neck Not Examined Eyes: Not Examined Respiratory: Clear to auscultation AND percussion Cardiovascular: Regular rate and rhythm and No murmurs GI: Soft and Non-tender Extremities: Not Examined Back: Normal back and mobility Neurological: Gait normal. No weakness or sensory deficit. Skin: Color, texture, turgor normal. [facility] Recurrent UTI Step Prevention Program: Takes 6 months before it is fully ineffect! This is not a treatment program for each time you may get a breakthrough infection in the future or while you are waiting for the prevention program to take effect over the next 6 months. Your primary care team will treat any breakthrough infections or provide refills for any of my suggestions below. The following is the recommended treatment to PREVENT recurrent urinary tract infections. 1) Topical estrogen cream for atrophic vaginitis: estrace cream fingertip application every other night 2) Probiotics: take any brand once daily: Try the brand Align but change brands every 6 months 3) A good bowel regimen to promote a BM each day or by every 3rd day 4) For break through infections over the next 6 months, use a 3 day course of Macrobid in which you use 1 pill 2 x a day for 3 days; if symptoms persists and you think you have a UTI, contact your PCP provider. 5) You may use AZO as directed as an OTC bladder pain relief when you have a breakthrough UTI; I think aspirin or Motrin/Aleve OTC is useful as well during an active infection Patient Information: Topical estrogen cream is recommended to restore the vaginal epithelium to its pre menopausal state. With a decrease in estrogen after menopause, the vaginal environment changes. This can lead to increased itchiness, dryness, and irritation. The environment becomes more basic/alkaline to a pH of 6.0 to 7.5. Normally the pH level is around 3.5 to 4.5. A different bacterial grazyna then begins to colonize the vagina which can lead to increased urinary tract infections. In order to re- establish the good bacteria grazyna, it is important to get the vaginal epithelium back to its pre menopausal state. This can be done with topical estrogen cream. A pea sized amount on the tip of the finger used every other night can do this. It takes about six months for the environment to become hospitable to good bacteria. During this time your doctor may or may not also prescribe a low dose daily antibiotic to decrease your chance of infections. Side effects of topical estrogen use include breast tenderness, vaginal bleeding or spotting, nonphysiologic discharge, vaginal irritation, burning and itching. If you have a history of deep vein thrombosis, pulmonary embolism, uterine cancer or estrogen receptor positive breast cancer, you may want to discuss this with your doctor prior to starting topical estrogen use. Histology slides of vaginal epithelium without estrogen then with estrogen supplementation. Epi stands for epithelium. Progress and Prospects in Treating Postmenopausal Vaginal atrophy. Clinical pharmacology AND Therapeutics, Vol 89 Number 1, November 2010 Probiotics also helps in re-establishing the good bacteria in the vaginal grazyna. Numerous probiotics are available over the counter to use. This can also help with establishing a good bowel regimen. Given the bowel's close proximity to both the vagina and urethra/bladder, it is important to have regular bowel movements to decrease voiding symptoms and also decrease the risk of urinary tract infections. A good bowel regimen help with decreasing colonic grazyna in the perineal area. This can be done with stool softeners available over the counter to gentle laxatives such as miralax. We would suggest avoiding [facility] use of laxatives though and if you would like a consult with gastroenterology for additional evaluation please ask. Along with these three strategies to prevent recurrent infections, your doctor may add additional strategies tailored to your situation. We are commonly asked whether taking cranberry extract will prevent urinary tract infections. Based on the most recent [employer]ites[employer] Review evaluating cranberries and the prevention of urinary tract infections, there is no clear evidence to suggest that cranberries effectively prevents urinary tract infections. Supplements with cranberry extracts have not been studied in a standardized fashion to suggest a benefit to using these daily. As such, we do not include using cranberry extract as part of our regimen to decreasing recurrent urinary tract infections. ADDITIONAL DATA REVIEWED: Most recent labs Urinalysis Most recent Office Notes Results for orders placed or performed in visit on 12/25/17 UA DIP, URINE (POC) Result Value Ref Range GLUCOSE UA (POCT) Negative Neg mg/dL BILIRUBIN UA (POCT) Negative Neg KETONE UA (POCT) Negative Neg mg/dL SPECIFIC GRAVITY UA (POCT) 1.015 1.005 - 1.030 HEMOGLOBIN/BLOOD UA (POCT) Large (A) Neg PH UA (POCT) 6.5 4.5 - 8 PROTEIN UA (POCT) Negative Neg mg/dL UROBILINOGEN UA (POCT) 1.0 Normal(<1.1) E.U./dL NITRITE UA (POCT) Negative Neg LEUKOCYTES UA (POCT) Small (A) Neg COLOR UA (POCT) Olga CLARITY UA (POCT) Cloudy URINE CULTURE Result Value Ref Range Specimen Request Presurgical Sterilization Specimen received in preservative Culture 10,000 - <50,000 CFU/ml Normal urogenital grazyna Risk of complication and/or Morbidity or Mortality: LOW DISEASE SPECIFICITY: Diagnosis: Urinary Urgency and Frequency Acuity: Chronic Severity: Mild Anatomic Site: Bladder, Laterality: N/A Vagina, Laterality: N/A Underlying Condition/Causal Agent: Primary Associated Conditions/Manifestations: Recent Infections with Bacterial Vaginosis - Treated IMPRESSION / PLAN: > Chronic UTI > given history of BV I recommended getting Ureaplasm/Mycoplasm culture > Urine Culture Sent > History of Bacterial Vaginosis - treated several times > Follow up PRN , will contact patient with the results of recent testing I spent approximately 40 minutes in this visit, with more than 50% of the time devoted to patient discussion, counseling, review of records and/or coordination of care. HARRY Aggarwal, MT, PAGreggC Observed: 12/25/2017 Status: F Source: [place] MYCOPLASMA CULT 3:[address] [facility] [place] REPOSITORY Test Result - Positive for Ureaplasma urealyticum Negative for Mycoplasma hominis Performed By: #### MYPLAS #### [facility] [employer] [address] [place], [place] [address] Observed: 12/25/2017 Status: F Source: [place] URINE CULTURE 2:[address] [facility] C[facility] REPOSITORY Sp. Request/Comment: - Presurgical Sterilization Specimen received in preservative Culture Result - 10,000 - <50,000 CFU/ml Normal urogenital grazyna Performed By: #### URCUL #### [facility] [address] [place], [place] [address] EMERGENCY DEPARTMENT Observed: 12/19/2017 Status: F Source: [place] SUMMARY 4:50 PM [facility] [place] [facility] Medical Records Department [address] [place] [address] Emergency Department Summary 12/19/17 1111 MR#: [id number] Acct: [id number] Name: JOSELYN MELENDEZ Rep #: [id number] : 1980 37 From: Naeem Arzola MD PCP: Care Physician, No Primary Status: DEP ER - ER Visit Summary Date of Service: 12/19/17 Chief Complaint: Fall History of Present Illness: 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 She reports 3:00 this morning she woke up was very lightheaded. She reports that her legs buckled. She is unsure whether she had a loss of consciousness. She was states that she went back to bed without any real problems. Patient reports that she woke up this morning with subjective fever, chills, cold sweats. She has a sore throat with swallowing only. She has a cough that began today. She is mildly short of breath. She has diffuse myalgias. Patient reports that she also now has right-sided low back and buttock pain that radiates into her right leg intermittently. It is a stabbing pain is 5 out of 10 at currently and 10 out of 10 at worst. Is increased with walking. She denies any problems with her bowels or her bladder. No groin numbness. Physical Examination: Vitals: Stable. Afebrile. Neck: No vertebral tenderness. Full ROM without difficulty. Cleared by NEXUS criteria. Back: Mild diffuse tenderness palpation over her lumbar spine. No point tenderness. Mild tenderness palpation over her right buttock. Negative straight leg raise bilaterally. 5 out of 5 dorsiflexion, plantar flexion, extensor hallucis longus bilaterally. Normal sensation light touch throughout. General: A AND O x 3. NAD. Cardiovascular exam: Regular rate and rhythm, no murmur, rub or gallop. Respiratory exam: Chest nontender. No crepitus. Clear to auscultation bilaterally. No wheezes or stridor. Abdominal exam: Soft, nontender, nondistended, normal bowel sounds. No pain in RUQ or LUQ specifically. No peritoneal signs. Extremity: Atraumatic. No pain with range of motion. Test Results: CT brain shows nodular mucosal thickening in the right maxillary sinus and partial opacification of the ethmoid sinuses. X-ray of the pelvis shows degenerative changes. LS spine showed x-ray shows degenerative changes. Chest x- ray is normal. Patency test is negative. She is positive for influenza A. Emergency Department Course and Treatment: Patient was treated with Tamiflu p.o. She was given Toradol, Zofran, and morphine IV. She is resting comfortably. Treatment Plan: Patient will be discharged with Tamiflu, naproxen, and [place]. Instructed follow-up Dr. Ross in 1 week if not improving. Return to the emergency department for any worsening symptoms. Disposition: To home in improved and stable condition. Impression: 1. Influenza A. 2. Fall. 3. Low back pain. This note was generated with Paperlit dictation software. It may contain incorrect words, spelling, and punctuation that were not noted in review of the chart prior to signing ED Disposition - Plan for ED Patient: Disposition: Home or Assisted Living Chief Complaint: General Illness Instructions: ED Flu, ED Neck Back Pain General Prescriptions: Hydrocodone Bitart/Apap 5-325 [[place] 5/325] 1 - 2 tablet PO Q4H PRN PRN #20 tablet PRN Reason: Pain Naproxen [Naprosyn] 500 mg PO BID #20 tablet Oseltamivir Phosphate [Tamiflu] 75 mg PO BID #10 capsule Referrals: Jessica Ross MD [STAFF PHYSICIAN] - 1 Week if not improving What to do if you have Problems For any increased pain, shortness of breath, bleeding, nausea or vomiting, chest pain, or any unexpected problems, contact your Primary Care Provider. Call [facility] ([phone]) or report to the closest Emergency Room. Call 911 if necessary. 12/19/17 1650 <Electronically signed by Naeem Arzola MD> Date Naeem Arzola MD Cosigner Signature (If Indicated): Date CC: No Primary Care Physician Observed: 12/19/2017 Status: F Source: [place] INFLUENZA A+B (RAPID 10:13 AM [facility] [place]POS[place] FLU A/B Rapid Negative test results should be confirmed by culture. Order Rapid Viral Culture for Influenzae A+B (311931) if clinically indicated. POSITIVE FLU A RESULTS CALLED TO NURSE SUSAN MCGILL IN THE ER, SENT TO INFECTION CONTROL PRINTER. -RB 12/19/17 1055 Influenza Ag, Direct POSITIVE for the presence of INFLUENZA A Antigen only ORGANISM 1: INFLUENZAE A Performed By: #### M101.0101 #### [facility] [address] [place] [address]. [place], [place], [address] ,SERUM,HCG QUALI. Collected: Status: F Source: [place] 12/19/2017 9:50 AM [facility] [place] TYPE CODE TESTS RESULT OUT OF REFERENCE UNITS RANGE LAB L700.7000 0-9 Nonpreg Negative Normal HCGSQUAL NEGATIVE LAB L700.6700 =>Qualitative mIU/mL Normal HCG Qual < 1 triggr Performed By: #### L700.6800 #### [facility] [place], [address] BRAIN/HEAD WITHOUT Observed: 12/19/2017 Status: F Source: [place] CONTRAST 9:39 AM [facility] [place] [facility] Imaging Services [address] [place] [address] Brain/Head without Contrast MR#: [id number] Acct: [id number] Name: JOSELYN MELENDEZ Rep #: [id number] : 1980 F 37 From: Manuel El MD PCP: Care Physician, No Primary Status: REG ER Study: Brain/Head without Contrast Date of Exam: 12/19/17 Exam# [id number] Ordering Dr: Naeem Arzola MD STUDY: CT BRAIN WITHOUT CONTRAST REASON FOR EXAM: Female, 37 years old. Headaches. General body aches. RADIATION DOSAGE (If Supplied By Facility): CTDIvol = ( 44.99 ) mGy, DLP = ( 762.36 ) mGycm TECHNIQUE: Transaxial CT imaging of the brain was performed without administration of intravenous contrast material. Individualized dose optimization techniques were used for this CT. COMPARISON: None. FINDINGS: Normal soft tissue structures. Normal calvarium. Normal size ventricles and extra-axial spaces for the patient's age. Normal white matter tracts of the cerebral hemispheres. Normal basal ganglia and thalami. Normal brainstem. Normal cerebellum. There is no intracranial hemorrhage. There are no findings of an acute ischemic infarction. Nodular mucosal thickening of the right maxillary sinus. Partial opacification of the ethmoid sinuses. There is evidence of prior sinus surgery. CT/Brain/Head without Contrast IMPRESSION: Nodular mucosal thickening of the right maxillary sinus and partial opacification of the ethmoid sinuses. Electronically Signed: Manuel El MD at 10:41 EST Tel [phone], Service support , CC: No Primary Care Physician; Naeem Arzola MD Radiation Monitor: Signed CHEST PA AND LATERAL Observed: 12/19/2017 Status: F Source: [place] 9:39 AM [facility] [place] [facility] Imaging Services [address] [place] [address] Chest PA and Lateral MR#: [id number] Acct: [id number] Name: JOSELYN MELENDEZ Rep #: [id number] : 1980 F 37 From: Manuel El MD PCP: Care Physician, No Primary Status: REG ER Study: Chest PA and Lateral Date of Exam: 12/19/17 Exam# [id number] Ordering Dr: Naeem Arzola MD STUDY: X-RAY CHEST REASON FOR EXAM: Female, 37 years old. Several weeks history of cough. TECHNIQUE: PA and lateral views of the chest. COMPARISON: None. FINDINGS: The lungs are clear and expanded. There is no demonstrated pleural abnormality. Normal size heart. Normal mediastinum and andrez. Normal visualized pulmonary arteries. Normal visualized aortic arch and descending thoracic aorta. Normal visualized thoracic spine. Normal visualized ribs, clavicles, and shoulders. There is no demonstrated abnormality of the visualized soft tissue structures of the upper abdomen. RAD/Chest PA and Lateral IMPRESSION: Normal x-ray examination of the chest. Electronically Signed: Manuel El MD at 10:46 EST Tel [phone], Service support , CC: No Primary Care Physician; Naeem Arzola MD Radiation Monitor: Signed LUMBAR SPINE 2 OR 3 Observed: 12/19/2017 Status: F Source: [place] VIEWS 9:39 AM [facility] [place] [facility] Imaging Services [address] [place] [address] Lumbar Spine 2 or 3 Views MR#: [id number] Acct: [id number] Name: JANNETHJOSELYN Christine Rep #: [id number] : 1980 F 37 From: Manuel El MD PCP: Care Physician, No Primary Status: REG ER Study: Lumbar Spine 2 or 3 Views Date of Exam: 12/19/17 Exam# [id number] Ordering Dr: Naeem Arzola MD STUDY: X-RAY - LUMBAR SPINE REASON FOR EXAM: Female, 37 years old. Pain and numbness in the right lower extremity following a fall TECHNIQUE: 3 view(s) of the lumbar spine were obtained. COMPARISON: None FINDINGS: Normal lumbar lordosis. There is no substantial scoliosis. There is a normal alignment of the vertebrae. Normal vertebral bodies and endplates. Moderate degree of disc space narrowing at the L5-S1 level. Degenerative changes of both sacroiliac joints. Clips from prior bilateral tubal ligation seen. RAD/Lumbar Spine 2 or 3 Views IMPRESSION: The space narrowing at the L5-S1 level. Electronically Signed: Manuel El MD at 10:47 EST Tel [phone], Service support , CC: No Primary Care Physician; Naeem Arzola MD Radiation Monitor: Signed PELVIS 1 OR 2 VIEWS Observed: 12/19/2017 Status: F Source: [place] 9:39 AM [facility] [place] [facility] Imaging Services [address] [place] [address] Pelvis 1 or 2 Views MR#: [id number] Acct: [id number] Name: JOSELYN MELENDEZ Rep #: [id number] : 1980 F 37 From: Manuel El MD PCP: Care Physician, No Primary Status: REG ER Study: Pelvis 1 or 2 Views Date of Exam: 12/19/17 Exam# [id number] Ordering Dr: Naeem Arzola MD STUDY: X-RAY - PELVIS REASON FOR EXAM: Female, 37 years old. Pain and numbness in the right lower extremity following a fall. TECHNIQUE: One view of the pelvis was obtained. COMPARISON: None. FINDINGS: There is a non-specific bowel gas pattern. Clips from prior tubal ligation seen. There is narrowing with cortical sclerosis and osteophyte formation of the sacroiliac joint consistent with degenerative osteoarthritic changes. Normal visualized bilateral superior and inferior pubic rami. Normal pubic symphysis. Normal ischial tuberosities. Normal visualized right femoral head. Normal right acetabulum. Normal right hip joint. Normal visualized left femoral head. Normal left acetabulum. Normal left hip joint. RAD/Pelvis 1 or 2 Views IMPRESSION: Degenerative changes of the sacroiliac joints bilaterally. Electronically Signed: Manuel El MD at 10:48 EST Tel [phone], Service support , CC: No Primary Care Physician; Naeem Arzola MD Radiation Monitor: Signed ALLERGIES ALLERGIES DATE TYPE / NAME / CODE REACTION SEVERITY SOURCE CODE 11/18/2018 Drug oxycodone Unknown Unknown [place] Allergy/41 HCl/[id number](RXN Community [id number]( OR) [facility]) Repository 11/18/2018 Drug propoxyphene Unknown Unknown [place] Allergy/41 napsylate/[id number] Community 7474317([facility](RXNORM) [facility]) Repository 11/18/2018 Drug Penicillins/E85927 Anaphylaxis Unknown [place] Allergy/41 0476(RXNORM) Community 3364352([facility]) Repository 11/18/2018 Drug acetaminophen/F006 Unknown Unknown [place] Allergy/41 368698(RXNORM) Community 9349160([facility]) Repository 11/18/2018 Drug amoxicillin/Q94325 Hives Unknown [place] Allergy/41 3675(RXNORM) Community 6757045([facility]) Repository 08/14/2005 DRUG AMOXICILLIN [facility] INGREDI/41 [place] 0260542([facility]) 08/14/2005 DRUG/83880 PROPOXYPHENE [facility] 1003([facility] N-ACETAMINOPHEN [place] D [facility]) Repository 08/14/2005 DRUG/45899 ERYTHROMYCIN [facility] 1003(SN[facility] [place] D CT) Repository 08/14/2005 Drug PENICILLINS SHORTNESS OF [facility] Class/4195 [place] [address](SNOM Repository ED CT) 08/14/2005 DRUG/53844 OXYCODONE-ACETAMIN [facility] 1003(SNOME OPHEN [place] D CT) Repository ENCOUNTERS ENCOUNTERS ADMIT/DISCHARGE ACCOUNT NUMBER ADMITTING ENCOUNTER LOCATION SOURCE CLASS 11/30/2018/12/01/19 [id number] GUIDO SEN, Ambulatory BBuilding:MS [place] Good[place] MD. [facility] [address]Bed: A [facility] Repository 11/22/2018/11/22/20 [id number] Emergency BBuilding:ER [address] Repository 11/18/2018/11/18/20 [id number] Emergency [address] ding:ED Repository 11/14/2018/11/14/20 [id number] Emergency [address] ding:ED Repository 11/05/2018/11/05/20 [id number] Emergency [address] ding:ED Repository 08/07/2018/08/07/20 [id number] Emergency BBuilding:ER [place] [address] [place] [address] Repository 06/30/2018/06/30/20 [id number] Emergency BBuilding:ER [place] [address] [place] [address] Repository 05/10/2018/05/10/20 [id number] Emergency BBuilding:ER [place] [address] [place] [address] Repository 04/09/2018/04/10/20 [id number] Ambulatory [address] Repository 03/13/2018/03/14/20 [id number] Ambulatory [address] Repository 12/25/2017/12/25/19 [id number] Ambulatory [address] Repository 12/19/2017/12/19/19 [id number] Emergency [address] ding:ED Repository PAYERS PAYERS ENCOUNTER GUARANTOR PAYER SUBSCRIBER SOURCE 11/30/2018 JOSELYN Quezada [facility]SELF [facility] INSCOPolicy Number: [id number] Repository [place], [place] Date:2018-11-30 [place] [address]Yks: [id number]~BRENDA [id number] Name: [email or web address] (HP)Tel: 000) l: (WP) [phone] () 11/22/2018 CHERISH L Primary [facility]ERISH L [facility] Insurance:[facility]LF [facility] INSCOPolicy Number: [id number] Repository [place], [place] Date:2018-11-22 [place] [address]Tya: 48180~[facility]PITALGIANFRANCOTRIN[facility] [id number] Name: [email or web address] (HP)Tel: (000) l: (WP) [phone] () (WP) 11/18/2018 CHERISH ELIN Primary NOT GIVENUNK [place] [id number] [place] Insurance:SELF PAY [facility] [address]Sqv: (174) Number: Effective Repository [phone] () Date:2018-11-18 11/14/2018 CHERISH ELIN Primary NOT GIVENUNK [place] [id number] [address] Insurance:SELF PAY [facility] [address]Vda: (765) Number: Effective Repository [phone] () Date:2018-11-14 11/05/2018 CHERISH L Primary NOT GIVENUNK [place] [id number] [place] Insurance:SELF PAY [facility] [id number]: (648) Number: Effective Repository [phone] () Date:2018-11-05 08/07/2018 CHERISH L Primary CHERISH L [facility]: Insurance:SELF [facility]: [facility] PAYPolicy Number: [id number] Repository [place], [place] [address]Kwm: Date:2018-08-07 - [place] [address]Acc: [id number] Name: ()Tel: (000) (HP) (WP) [phone] (WP) 06/30/2018 [facility]ISH L [facility] PAYPolicy Number: [id number] Repository [place], [place] [address]Zbt: Date:2018-06-30 - [place] [address]Gni: [id number] Name: ()Tel: (000) (HP) (WP) [phone] (WP) 05/10/2018 [facility]OSPITAL[facility] L [facility]: [facility]: [facility] [id number] Repository [place] [place], Number: [place] [address]Jpk: [id number] [place] [address]Jwi: Date:2018-05-10 - (HP)Tel: (000) [phone] (HP) (WP) Name:[address] (WP) [place], [place] [address]FT: 12/19/2017 CHERISH Primary CHERISH [facility] [address] Insurance:[facility]: [place] ADVANTAGE MCDPolic [id number] [facility] [address]Rue: (030) Number: Repository [phone] () [id number] Date:7905-08-39[address] [address]VZ: 12/19/2017 Secondary NOT GIVENUNK [place] Insurance:SELF PAY [facility] Number: Effective Repository Date:2017-12-19
== END 2018-11-05 07:28 | disposition home or self-care (01) ==
PROVIDERS: Emergency Provider Emergency Medicine
DX: L30.9 Dermatitis, unspecified (principal); R60.9 Edema, unspecified; R05 Cough; Z72.0 Tobacco use; Z98.51 Tubal ligation status
CPT/HCPCS: 99283

== ENCOUNTER 2018-11-14 02:47 | Emergency (ER) | payer SELFPAY ==
[2018-11-14 02:48] VITALS: BP 110/72; PULSE 107; RESP 18; TEMP 36.4; O2SAT 95; BMI 25.3
[2018-11-14 03:21] LABS: Absolute Lymphocyte Count 3.08 X10^3/ul (0.83-4.51); Absolute Neutrophil Count 6.6 X10^3/uL (2.0-7.7); Basophil% 0.9 % (0-1); Eosinophils% 6.2 % (0-5); Hematocrit 40.2 % (37-47); Hemoglobin 13.3 g/dl (12.0-15.0); Lymphocyte # 3.08 X10^3/ul (4.0); Lymphocyte % 27.4 % (19-41); Mean Corp Hgb Conc 33.1 g/gl (32-36); Mean Corpuscular Volume 87.8 fL (81-99); Mean Platelet Vol. 9.1 fl (6.2-12.0); Monocyte# 0.65 X10^3/uL; Monocyte% 5.8 % (0-10); Neutrophil # 6.59 X10^3/uL (2.7-7.7); Neutrophil % 58.6 % (47-70); Platelet Count 265 K/mm3 (150-450); RBC Distribution Width CV 13.9 % (11.6-14.6); RBC Distribution Width SD 44.4 fl (35.1-43.9); Red Blood Count 4.58 M/mm3 (4.2-5.4); White Blood Count 11.2 K/mm3 (4.4-11.0)
[2018-11-14] MEDS: Morphine 4 MG/ML Syringe IV (03:21)
[2018-11-14] MEDS: 0.9% Normal Saline 1,000 ML 1000 ML IV (03:21)
[2018-11-14 03:22] LABS: POSITIVE COUNT NO; POSITIVE DIFFERENTIAL NO; POSITIVE MORPHOLOGY NO
[2018-11-14] MEDS: MethylPREDNISolone 125 MG/2 ML Vial IV (03:23)
--- NOTE | 2018-11-14 03:26 | ED.VISSUMM ---
- ER Visit Summary Date of Service: 11/14/18 Chief Complaint: Joint pain History of Present Illness: The patient is a 37 F who presents with joint pain that began today. Patient states she had a similar episode approximately 2 weeks ago and was given prednisone. Patient states her joint pain improved with this but became worse again tonight. Patient describes the pain is burning sensation. Patient states it is worse over her elbows, wrists, hands, knees, ankles, and feet. Patient states her pain is worse with any movement. Patient denies any fevers or chills. Patient does admit to some urinary urgency but denies any dysuria or hematuria. Patient also admits to a mild erythematous rash around her ankles. Patient states she had a similar rash approximately 2 weeks ago that also resolved with the prednisone. Patient denies any trauma or injury. Physical Examination: Vital signs are stable except for mild tachycardia of 107. Patient is afebrile. Patient is in no acute distress. Oral mucosa is pink and moist. Neck is supple. Trachea is midline. There is no JVD noted. Heart was regular rate and rhythm. Lungs are clear and equal bilaterally. Abdomen is soft. Bowel sounds are normal. There is no tenderness. Cranial nerves II through XII are intact. There are no focal motor or sensory deficits noted. Musculoskeletal exam does reveal edema and tenderness of the bilateral wrist joints, MP joints, PIP joints, DIP joints, bilateral ankles, bilateral knees, and bilateral elbows. Range of motion was limited all motions of these joints secondary to pain. There is no deformity noted. Test Results: CBC showed a mild leukocytosis of 11.2. Comprehensive metabolic profile was within normal limits. Urine hCG was negative. PT with INR and PTT were normal. Sed rate was normal at 2. CRP was elevated at 8. Urine tox screen was positive for opiates, amphetamines, methamphetamine, cocaine, and cannabinoids. Urinalysis shows evidence of urinary tract infection. Emergency Department Course and Treatment: Patient was given IV fluids morphine and Solu-Medrol here. Patient was also given a dose of Ativan here. Patient felt better on reevaluation. Patient was given prescriptions for prednisone and Bactrim. Patient was instructed to follow-up with her primary care physician in 5-7 days. Patient and her family understood and were agreeable with the plan. All questions were answered. Disposition: Discharged home Impression: 1. Urinary tract infection 2. Arthralgias This note was generated with [employer] dictation software. It may contain incorrect words, spelling, and punctuation that were not noted in review of the chart prior to signing ED Disposition - Plan for ED Patient: Disposition: Home or Assisted Living Chief Complaint: Weakness Diagnosis: Urinary tract infection, Arthralgia Instructions: ED Joint Pain, ED UTI Cystitis Female Prescriptions: predniSONE tablet 60 mg PO DAILY #15 tab Smz/Tmp Ds [Bactrim Ds] 1 tab PO BID #6 tab Referrals: Care Physician,No Primary [Primary Care Provider] -
[2018-11-14 03:28] LABS: International Normalized Ratio 1.1; Prothrombin Time (Protime)PT. 14.3 SECONDS (11.7-14.9)
[2018-11-14 03:37] LABS: AST(SGOT) 21 U/L (15-37); Alanine Aminotransfer ALT/SGPT 54 U/L (13-56); Alkaline Phosphatase 74 U/L (45-117); Anion Gap 6 (5-15); BUN 19 mg/dL (7-18); BUN/Creat Ratio 21.1 RATIO (10-20); Chloride 103 mmol/L (98-107); EST Glomerular Filtration Rate 74 mL/min (>60); Est Glom Filt Rate - Afr Amer 90 mL/min (>60); Globulin 2.9 g/dL (2.2-4.2); Glucose 109 mg/dL (74-106); Protein, Total 5.9 g/dL (6.4-8.2); Sodium Level 142 mmol/L (136-145)
[2018-11-14 03:51] LABS: Mucous, Urine 0 SEEN /hpf (<or=2+); Red Blood Cells-Urine 0 SEEN /hpf (0-5)
--- NOTE | 2018-11-14 03:53 | ED.RN ---
PT'S FRIEND EXPRESSED THAT SHE WANTED THE STAFF TO KNOW THAT THE PT USED HEROIN AND SHE WAS NOT SURE WHAT IT WAS CUT WITH.
[2018-11-14 03:54] LABS: Color, Urine Yellow (Yellow); Glucose, Dipstick Normal (Normal); Ketone-Dipstick 5 mg/dl (Negative); Leukocyte Esterase-Dipstick 100 /ul (Negative); Nitrite-Dipstick Positive (Negative); Occult Blood-Urine Negative /ul (Negative); Protein-Dipstick 15 mg/dl (Negative); Urine Bilirubin Dipstick Negative (Negative); Urine Clarity Cloudy (Clear); Urine Urobilinogen 1 mg/dl (Normal)
[2018-11-14 04:04] LABS: Bacteria 3+ /hpf (None Seen); White Blood Cells 5-10 SEEN /hpf (0-5)
[2018-11-14 04:05] LABS: Squamous Epithelial Cells - UA 0-5 SEEN /hpf (5-10)
[2018-11-14 04:24] LABS: CRP 8.13 mg/L (0.0-3.0)
[2018-11-14 04:30] LABS: Erythrocyte Sedimentation Rate 2 mm/hr (0-20)
[2018-11-14] MEDS: LORazepam 2 MG/ML Syringe 1 MG IV (05:12)
[2018-11-14 05:14] VITALS: PULSE 94; RESP 20; O2SAT 96
[2018-11-14 05:17] LABS: Internal QC Validated? YES +Cl - CLEAR BKGD; Pregnancy, Urine Negative Negative
[2018-11-14 05:34] LABS: Amphetamine Urine VISTA POSITIVE (<1000 ng/mL); Barbiturate Urine VISTA NEGATIVE (< 200 ng/mL); Benzodiazepine Urine VISTA NEGATIVE (< 200 ng/mL); Cocaine Urine VISTA POSITIVE (< 300 ng/mL); Ecstacy Urine VISTA POSITIVE (< 500 ng/mL); Methadone Urine VISTA NEGATIVE (< 300 ng/mL); PCP Urine VISTA NEGATIVE (< 25 ng/mL); THC Urine VISTA POSITIVE (< 50 ng/mL); Vista UDS pH Range 6
[2018-11-14 06:49] VITALS: BP 100/60; PULSE 72; RESP 16; O2SAT 96
== END 2018-11-14 06:50 | disposition home or self-care (01) ==
PROVIDERS: Emergency Provider Emergency Medicine
DX: N39.0 Urinary tract infection, site not specified (principal); M25.50 Pain in unspecified joint; R21 Rash and other nonspecific skin eruption; R00.0 Tachycardia, unspecified; D72.829 Elevated white blood cell count, unspecified
CPT/HCPCS: 80053; 80307; 81001; 81025; 85025; 85610; 85652; 85730; 86140; 87040; 96361; 96374; 96375; 99284; J7030; A4216

== ENCOUNTER 2018-11-18 15:27 | Emergency (ER) | payer SELFPAY ==
[2018-11-18 15:29] VITALS: BP 145/85; PULSE 89; RESP 16; TEMP 36; O2SAT 97; BMI 25.7
[2018-11-18 15:40] VITALS: BP 121/90
--- NOTE | 2018-11-18 15:41 | ED.RN ---
PT ASSESSED. PT DROWSY. DENIES DRUG USE TODAY HOWEVER STATES SHE DOES METH AND HEROIN.
--- NOTE | 2018-11-18 15:52 | ED.DCSUM_ITS ---
- ER Visit Summary Date of Service: 11/18/18 Chief Complaint: Reported abdominal pain History of Present Illness: The patient is a 37 F history of drug abuse. Patient appears high. She is a very limited informant. I have to keep waking her up and shaking her to get her to respond to my questioning. Reportedly she has abdominal pain. From the scene where she was brought in from there with drugs. Physical Examination: Female no acute distress. Is very sleepy. Pupils equal open her eyes. Will answer limited questions. Keeps falling asleep. HEENT exam pupils are round reactive to light about 3 mm bilaterally. No facial trauma. No head trauma. Neck nontender. Lungs clear to auscultation bilaterally. Heart regular rhythm no murmur. Abdomen is soft and nontender. Nondistended. Normal bowel sounds. No hernias or masses.. No peritoneal signs. There are no signs of trauma to her abdomen. Extremities are nontender. No rashes. Back nontender. Neurologically she appears to be intoxicated. I do not smell alcohol. She is arousable. She will move all 4 extremities. Test Results: Clinically I do not find any obvious signs of abdominal pain. She should be given IV Narcan. Screening labs will be obtained. CBC shows a white count of 14.9 and hemoglobin of 18. Electrolytes unremarkable sodium 135. Normal gap of 7. Creatinine 1.1. Liver enzymes normal. Lipase normal. Serum test negative. Emergency Department Course and Treatment: IV Narcan. After the patient was treated with IV Narcan she defecated in the bed. Treatment Plan: [] Disposition: Discharge Impression: Acute intoxication secondary to drug use Reported abdominal pain uncertain etiology This note was generated with [employer] dictation software. It may contain incorrect words, spelling, and punctuation that were not noted in review of the chart prior to signing ED Disposition - Plan for ED Patient: Chief Complaint: Abd Pain Referrals: Care Physician,No Primary [Primary Care Provider] -
[2018-11-18] MEDS: Naloxone 2 MG/2 ML Syringe IV (15:56)
[2018-11-18 16:21] LABS: Absolute Lymphocyte Count 1.95 X10^3/ul (0.83-4.51); Absolute Neutrophil Count 11.5 X10^3/uL (2.0-7.7); Basophil# 0.02 X10^3/uL; Basophil% 0.1 % (0-1); Eosinophil# 0.34 X10^3/uL; Eosinophils% 2.3 % (0-5); Hematocrit 54.7 % (37-47); Lymphocyte # 1.95 X10^3/ul (4.0); Lymphocyte % 13.1 % (19-41); Mean Corp Hgb Conc 33.3 g/gl (32-36); Mean Corpuscular Hgb 29.2 pg (27.0-32.0); Mean Corpuscular Volume 87.8 fL (81-99); Mean Platelet Vol. 9.4 fl (6.2-12.0); Monocyte# 0.93 X10^3/uL; Monocyte% 6.3 % (0-10); Neutrophil # 11.53 X10^3/uL (2.7-7.7); Neutrophil % 77.6 % (47-70); Platelet Count 277 K/mm3 (150-450); RBC Distribution Width CV 14.2 % (11.6-14.6); RBC Distribution Width SD 45.4 fl (35.1-43.9); Red Blood Count 6.23 M/mm3 (4.2-5.4); White Blood Count 14.9 K/mm3 (4.4-11.0)
[2018-11-18 16:23] LABS: Hemoglobin 18.2 g/dl (12.0-15.0); POSITIVE COUNT NO; POSITIVE DIFFERENTIAL NO; POSITIVE MORPHOLOGY NO
[2018-11-18 17:00] LABS: AST(SGOT) 36 U/L (15-37); Alanine Aminotransfer ALT/SGPT 53 U/L (13-56); Albumin, Serum 3.6 g/dL (3.2-5.0); Alkaline Phosphatase 87 U/L (45-117); Anion Gap 7 (5-15); BUN 27 mg/dL (7-18); BUN/Creat Ratio 24.3 RATIO (10-20); Bilirubin, Direct 0.16 mg/dL (0.00-0.30); Calcium,Total 8.7 mg/dL (8.5-10.1); Chloride 98 mmol/L (98-107); Creatinine, Serum 1.11 mg/dL (0.55-1.02); EST Glomerular Filtration Rate 59 mL/min (>60); Est Glom Filt Rate - Afr Amer 71 mL/min (>60); Estimated Creatinine Clearance 59.92 ml/min; Globulin 3.9 g/dL (2.2-4.2); Glucose 117 mg/dL (74-106); Lipase 74 U/L (73-393); Potassium 4.3 mmol/L (3.5-5.1); Pregnancy, Serum, hCG Quali. NEGATIVE Negative (0-9 Nonpreg); Protein, Total 7.5 g/dL (6.4-8.2); Sodium Level 135 mmol/L (136-145)
--- NOTE | 2018-11-18 17:07 | ED.DEP ---
ED Disposition - Plan for ED Patient: Disposition: Home or Assisted Living Chief Complaint: Abd Pain Instructions: ED Drug Abuse General Referrals: Ellen Barragan [NON-STAFF] - As Needed Additional Instructions: Patient strongly consider following up with a drug treatment program like [facility] or [facility].
[2018-11-18 17:19] VITALS: PULSE 114; RESP 18; O2SAT 98
== END 2018-11-18 17:20 | disposition home or self-care (01) ==
PROVIDERS: Emergency Provider Emergency Medicine
DX: F19.129 Other psychoactive substance abuse with intoxication, unspecified (principal); Y92.9 Unspecified place or not applicable; R10.9 Unspecified abdominal pain; Z72.0 Tobacco use
CPT/HCPCS: 80048; 80076; 83690; 84703; 85025; 96374; 99285